=== PATIENT | male | born 1935 ===

== ENCOUNTER 2017-04-29 19:19 | Inpatient (IN) | payer OTHER ==
[2017-04-29 19:19] VITALS: BMI 27.3
--- NOTE | 2017-04-29 20:40 | ED PDOC ---
Lower Extremity Pain/Injury Time Seen by Provider: 04/29/17 20:38 Chief Complaint (Nursing): Lower Extremity Problem/Injury Chief Complaint (Provider): left leg swelling History Per: Patient (82 y/o male h/o DM/HTN here left leg swelling noted today. Notes pain gradually worsening today. Has no prior h/o pain or injury to leg.) Past Medical History Reviewed: Historical Data, Nursing Documentation, Vital Signs Vital Signs: Last Vital Signs Temp 97.4 F L 04/29/17 19:26 Pulse 103 H 04/29/17 19:26 Resp 18 04/29/17 19:26 BP 195/83 H 04/29/17 19:26 Pulse Ox 97 04/29/17 19:26 - Medical History PMH: HTN, Hypercholesterolemia Denies: Chronic Kidney Disease - Family History Family History: States: No Known Family Hx - Home Medications Home Medications: Ambulatory Orders Medication Instructions Recorded Aspirin [Aspirin Chewable] 81 mg PO DAILY 01/25/17 Diclofenac Sodium [Voltaren] 75 mg PO BID PRN 01/25/17 Empagliflozin [Jardiance] 10 mg PO DAILY 01/25/17 Ergocalciferol (Vitamin D2) 1 tab PO QWK 01/25/17 [Vitamin D2] Glimepiride [amaRYL] 2 mg PO DAILY 01/25/17 Lidocaine 5% [Lidoderm] 5 % TP DAILY 01/25/17 Losartan/Hydrochlorothiazide 1 tab PO DAILY 01/25/17 [Losartan-Hctz 100-25 mg Tab] Pravastatin Sodium [Pravachol] 40 mg PO DAILY 01/25/17 Tamsulosin HCl [Flomax] 0.4 mg PO DAILY 01/25/17 metFORMIN [glucOPHAGE] 500 mg PO BID 01/25/17 - Allergies Allergies/Adverse Reactions: Allergies Allergy/AdvReac Type Severity Reaction Status Date / Time No Known Allergies Allergy Verified 01/25/17 10:40 Review of Systems ROS Statement: Except As Marked, All Systems Reviewed And Found Negative Physical Exam - Reviewed Nursing Documentation Reviewed: Yes Vital Signs Reviewed: Yes - Physical Exam Appears: Positive for: Well, Non-toxic, No Acute Distress Head Exam: Positive for: ATRAUMATIC, NORMAL INSPECTION, NORMOCEPHALIC Skin: Positive for: Normal Color, Warm, DRY Eye Exam: Positive for: EOMI, Normal appearance, PERRL ENT: Positive for: Normal ENT Inspection Neck: Positive for: Normal, Painless ROM Cardiovascular/Chest: Positive for: Regular Rate, Rhythm Respiratory: Positive for: CNT, Normal Breath Sounds Gastrointestinal/Abdominal: Positive for: Normal Exam, Bowel Sounds, Soft Back: Positive for: Normal Inspection Extremity: Positive for: Normal ROM, Tenderness, Swelling (left thigh/leg), Other (pulse decreased dorsalis pedis left foot (+) dopplerable dorsum of foot) Neurologic/Psych: Positive for: Alert, Oriented - Laboratory Results Result Diagrams: 04/29/17 21:00 04/29/17 21:00 - ECG ECG Rhythm: Positive for: Sinus Rhythm (nsr 84bpm; no ectopy no acute changes) O2 Sat by Pulse Oximetry: 97 - Radiology X-Ray: Viewed By Me (cardiomegaly; no obvious infiltrate) - Progress ED Course And Treament: Lovenox 80 mg SC IM x 1 dose US: (+) dvt d/w Dr. Kauffman Disposition - Clinical Impression Clinical Impression: DVT (deep venous thrombosis) - Patient ED Disposition Is Patient to be Admitted: Yes - Disposition Disposition Time: 22:00 Condition: FAIR - Pt Status Changed To: Hospital Disposition Of: Inpatient - Admit Certification Admit to Inpatient:: After my assessment, the patient will require hospitalization for at least two midnights. This is because of the severity of symptoms shown, intensity of services needed, and/or the medical risk in this patient being treated as an outpatient.
[2017-04-29 21:13] LABS: BASO # 0.1 K/uL (0.0-0.2); BASO % 1.1 % (0.0-2.0); EOS # 0.1 K/uL (0.0-0.7); EOS % 1.6 % (0.0-4.0); HEMOGLOBIN 14.9 g/dL (12.0-18.0); LYMPH # 1.6 K/uL (1.0-4.3); LYMPH % 23.4 % (20.0-40.0); MEAN CELL VOLUME 80.5 fl (80.0-94.0); MEAN CORPUSCULAR HEMOGLOBIN 26.5 pg (27.0-31.0); MEAN CORPUSCULAR HGB CONC 32.9 g/dL (33.0-37.0); MEAN PLATELET VOLUME 7.3 fl (7.2-11.7); MONO # 0.6 K/uL (0.0-0.8); MONO % 9.3 % (0.0-10.0); NEUT # 4.4 K/uL (1.8-7.0); NEUT % 64.6 % (50.0-75.0); NRBC % 0.1 % (0.0-0.0); RBC 5.63 Mil/uL (4.40-5.90); RED CELL DISTRIBUTION WIDTH 13.6 % (11.5-14.5); WHITE BLOOD COUNT 6.8 K/uL (4.8-10.8)
[2017-04-29 21:23] LABS: ALB/GLOB RATIO 1.2 (1.0-2.1); ALBUMIN 4.2 g/dL (3.5-5.0); ALT/SGPT 30 U/L (21-72); AST/SGOT 23 U/L (17-59); BLOOD UREA NITROGEN 27 mg/dl (9-20); GFR AFRICAN-AMERICAN > 60; GFR NON-AFRICAN AMERICAN > 60
[2017-04-29 21:28] LABS: INR 1.2 (0.9-1.2); PARTIAL THROMBOPLASTIN TIME 30.1 Seconds (25.6-37.1); PROTHROMBIN TIME 13.1 Seconds (9.8-13.1)
[2017-04-29 21:47] LABS: B-TYPE NATRIURETIC PEPTIDE 37.2 pg/ml (0-900)
[2017-04-29] MEDS ORDERED: DICLOFENAC SODIUM 75 MG PO PRN (22:38)
[2017-04-29] MEDS: Enoxaparin 80 mg Syringe SC SCH (22:45)
[2017-04-29] MEDS ORDERED: ERGOCALCIFEROL PO SCH (22:45)
--- NOTE | 2017-04-29 22:50 | US ---
EXAM: US Duplex Left Lower Extremity Veins EXAM DATE/TIME: 04/29/2017 8:29 PM CLINICAL HISTORY: 82 years old, male; Pain; Leg, upper and leg, lower and foot and toes; Left; Patient HX: Left leg, foot pain & swelling; Additional info: R/O dvt TECHNIQUE: Real-time ultrasound scan of the veins of the left lower extremity with color Doppler flow, spectral waveform analysis and compression. COMPARISON: No relevant prior studies available. FINDINGS: Absence of normal compressibility of the left common femoral, superficial femoral, popliteal, and posterior tibial veins, associated with intraluminal echoes and absent flow on color imaging, compatible with extensive deep venous thrombosis of the left leg. Thrombus is also visualized in the proximal and mid left greater saphenous vein, compatible with superficial venous thrombosis. IMPRESSION: Extensive deep venous thrombosis of the left leg, from the groin to the calf, involving the left common femoral, femoral, popliteal and posterior tibial veins. See above for remaining findings.
--- NOTE | 2017-04-29 23:07 | CP.PCM.HP ---
History of Present Illness - History of Present Illness History of Present Illness: CC: Left leg pain This is an 82 yo male with a past medical history of Type 2 DM, essential hypertension, hypercholesterolemia, who presented to the ED after noticing left lower extremity swelling and calf pain gradually worsening over the course of the day. He denies any trauma or recent injury to the leg. Denies any recent travel. Denies any history of blood clots in the past. In the ED, the patient was found to have a significant left lower extremity deep venous thrombosis extending up to the femoral vein. The patient does have good pedal pulses, normal capillary refill. Patient saturating well, denies chest pain, and is not tachycardic, suggesting no existing pulmonary embolism. The patient was given therapeutic Lovenox. He is being admitted to med/surg for further workup. The patient denies shortness of breath, n/v/d, fever, chills, weakness. Present on Admission - Present on Admission Any Indicators Present on Admission: Yes History of DVT/PE: No History of Uncontrolled Diabetes: Yes Review of Systems - Review of Systems Review of Systems: A 12 point ROS was conducted and found to be negative other than in HPI. Past Patient History - Infectious Disease Hx of Infectious Diseases: None - Past Medical History & Family History Past Medical History?: Yes Past Family History: Reviewed and not pertinent - Past Social History Smoking Status: Never Smoked Alcohol: None Drugs: Denies - CARDIAC Hx Hypercholesterolemia: Yes Hx Hypertension: Yes - PULMONARY Hx Respiratory Disorders: No - NEUROLOGICAL Hx Neurological Disorder: No - HEENT Hx HEENT Problems: Yes Hx Cataracts: Yes - RENAL Hx Chronic Kidney Disease: No - ENDOCRINE/METABOLIC Hx Endocrine Disorders: Yes Hx Diabetes Mellitus Type 2: Yes - HEMATOLOGICAL/ONCOLOGICAL Hx Blood Disorders: No - INTEGUMENTARY Hx Dermatological Problems: No - MUSCULOSKELETAL/RHEUMATOLOGICAL Hx Musculoskeletal Disorders: No - GASTROINTESTINAL Hx Gastrointestinal Disorders: No - GENITOURINARY/GYNECOLOGICAL Hx Genitourinary Disorders: Yes Other/Comment: BPH - PSYCHIATRIC Hx Psychophysiologic Disorder: No Hx Substance Use: No - SURGICAL HISTORY Hx Surgeries: Yes Hx Cataract Extraction: Yes - ANESTHESIA Hx Anesthesia: Yes Hx Anesthesia Reactions: No Meds Allergies/Adverse Reactions: Allergies Allergy/AdvReac Type Severity Reaction Status Date / Time No Known Allergies Allergy Verified 01/25/17 10:40 Physical Exam - Additional Findings Additional findings: Physical exam: Constitutional- cooperative, awake, alert Head- NCAT, PERRL Eye- PERRL, EOMI. + Cataracts ENT- normal exam, MMM. Neck- normal inspection, supple, no JVD Respiratory- CTAB, no wheezes rales rhonchi Cardiovascular- RRR, +S1, +S2 no MRG GI/Abdominal- normal bowel sounds, soft, no mass, no hsm Skin- warm, dry Extremities Exam- + Tenderness, erythema, and edema to the left extremity extending up into the thigh. + Pedal pulses bilaterally Neurological Exam- alert, awake, oriented Psych- normal mood, normal affect Results - Vital Signs Recent Vital Signs: Last Vital Signs Temp 98 F 04/29/17 22:50 Pulse 85 04/29/17 22:50 Resp 18 04/29/17 22:50 BP 158/90 H 04/29/17 22:50 Pulse Ox 100 04/29/17 22:50 - Labs Result Diagrams: 04/29/17 21:00 04/29/17 21:00 Labs: Laboratory Results - last 24 hr 04/29/17 04/29/17 04/29/17 21:00 21:00 21:00 WBC 6.8 RBC 5.63 Hgb 14.9 Hct 45.3 MCV 80.5 MCH 26.5 L MCHC 32.9 L RDW 13.6 Plt Count 256 MPV 7.3 Neut % (Auto) 64.6 Lymph % (Auto) 23.4 [place] % (Auto) 9.3 Eos % (Auto) 1.6 Baso % (Auto) 1.1 Neut # (Auto) 4.4 Lymph # (Auto) 1.6 [place] # (Auto) 0.6 Eos # (Auto) 0.1 Baso # (Auto) 0.1 PT 13.1 INR 1.2 APTT 30.1 Sodium 139 Potassium 4.6 Chloride 101 Carbon Dioxide 23 Anion Gap 20 BUN 27 H Creatinine 1.1 Est GFR ( Amer) > 60 Est GFR (Non-Af Amer) > 60 Random Glucose 322 H Calcium 10.0 Total Bilirubin 0.5 AST 23 ALT 30 Alkaline Phosphatase 77 Troponin I < 0.0120 NT-Pro-B Natriuret Pep 37.2 Total Protein 7.9 Albumin 4.2 Globulin 3.7 Albumin/Globulin Ratio 1.2 Assessment & Plan - Assessment and Plan (Free Text) Plan: ASSESSMENT/PLAN 1) Left lower extremity deep venous thrombosis, presumed to be unprovoked - Admit to med/surg - consultation to heme/onc in AM for further workup - therapeutic Lovenox, 80 mg SC q 12 hours - Patient may be good candidate for Coumadin vs novel anticoagulant - For further workup in AM 2) Uncontrolled Type 2 Diabetes mellitus - Moderate carbohydrate consistent diet - Regular insulin sliding scale, accuecheks AC+HS - Restart Amaryl 2 mg po daily 3) Essential hypertension - Losartan 100 mg po daily - HCTZ 25 mg po daily 4) Hypercholesterolemia, chronic - Continue home statin 5) BPH - Continue Flomax
[2017-04-29] MEDS: Insulin Regular 100 units/ml SC SCH (23:25)
[2017-04-30 05:35] LABS: HEMOGLOBIN 14.1 g/dL (12.0-18.0); MEAN CELL VOLUME 80.6 fl (80.0-94.0); MEAN CORPUSCULAR HEMOGLOBIN 26.9 pg (27.0-31.0); MEAN CORPUSCULAR HGB CONC 33.4 g/dL (33.0-37.0); RBC 5.25 Mil/uL (4.40-5.90); RED CELL DISTRIBUTION WIDTH 13.7 % (11.5-14.5); WHITE BLOOD COUNT 6.1 K/uL (4.8-10.8)
[2017-04-30 05:53] LABS: BLOOD UREA NITROGEN 26 mg/dl (9-20); CALCIUM 10.1 mg/dL (8.4-10.2); GFR AFRICAN-AMERICAN > 60; GFR NON-AFRICAN AMERICAN > 60
[2017-04-30] MEDS ORDERED: Pneumococcal 23-Valent Vaccine IM ONE (06:00)
[2017-04-30] MEDS: Insulin Regular 100 units/ml SC SCH ×4 (06:28→23:00)
[2017-04-30] MEDS ORDERED: GlipiZIDE 5 mg SR Tab PO SCH (07:30)
--- NOTE | 2017-04-30 08:12 | CARD ---
APPROVED REPORT EKG Measurement Heart [id number] <Conclusion> Normal sinus rhythm with sinus arrhythmia Nonspecific T wave abnormality Abnormal ECG
--- NOTE | 2017-04-30 08:17 | RAD ---
PROCEDURE: CHEST RADIOGRAPH, 1 VIEW HISTORY: routine COMPARISON: Chest radiographs 08/19/2010. FINDINGS: Base again seen to be slightly rotated towards the right. LUNGS: No acute infiltrate identified bilaterally. PLEURA: No pneumothorax or pleural fluid seen. CARDIOVASCULAR: Normal. OSSEOUS STRUCTURES: No significant abnormalities. VISUALIZED UPPER ABDOMEN: Normal. OTHER FINDINGS: None. IMPRESSION: No interval acute cardiopulmonary disease appreciated.
[2017-04-30] MEDS: Ergocalciferol 50,000 Intl Units Cap PO SCH (08:23)
[2017-04-30] MEDS: Pravastatin Sodium 40 MG TAB PO SCH (08:24)
[2017-04-30] MEDS: Enoxaparin 80 mg Syringe SC SCH (08:45)
[2017-04-30] MEDS: Lidocaine 5% Patch TD SCH (08:46)
[2017-04-30] MEDS ORDERED: Enoxaparin 40 mg Syringe SC SCH (09:00)
[2017-04-30] MEDS ORDERED: GLIMEPIRIDE 2 MG PO SCH (09:00)
[2017-04-30] MEDS ORDERED: Patient's Own Med (Losartan/Hydrochlorothiazide [Losartan-Hctz 100-25 Mg Tab] 1 TAB) PO SCH (09:00)
--- NOTE | 2017-04-30 09:30 | US ---
PROCEDURE: Duplex ultrasound of the left lower extremity arteries. HISTORY: pain/swelling COMPARISON: None available. TECHNIQUE: Grayscale and duplex Doppler evaluation of the left common femoral, superficial femoral, popliteal, posterior tibial and dorsalis pedis arteries was performed.. FINDINGS: COMMON FEMORAL ARTERY: Patent. Maximal flow velocity of 112.9 cm/s. High resistance waveforms, no significant stenosis. SUPERFICIAL FEMORAL ARTERY:Patent. Maximal flow velocity of 93.5 cm/s. High resistance waveforms, no significant stenosis. POPLITEAL ARTERY:Patent. Maximal flow velocity of 91.9 cm/s. High resistance waveforms, no significant stenosis. POSTERIOR TIBIAL ARTERY: Patent. Maximal flow velocity of 66.4 cm/s. Monophasic waveform, high-grade stenosis or occlusion with collateralized blood flow. DORSALIS PEDIS ARTERY: Patent. Maximal flow velocity of 16.8 cm/s. Monophasic waveform, high-grade stenosis or occlusion with collateralized blood flow. ANTERIOR TIBIAL ARTERY: Pain with maximum flow velocity of 66.4 centimeters/second. Monophasic waveform, high-grade stenosis or occlusion with collateralized blood flow. OTHER FINDINGS: None. IMPRESSION: No significant stenosis left groin to knee with severe arterial disease in the runoff distribution diffusely. Further characterization can provided by conventional digital subtraction, CT or MR angiography.
--- NOTE | 2017-04-30 09:55 | CP.PCM.CON ---
History of Present Illness - History of Present Illness History of Present Illness: Patient is a 82 years old presented to the emergency room complaining of increasing left leg swollen was tenderness throughout the left leg. For which I was called to see him for renal evaluation because of the swollen. Patient has history of diabetes mellitus hypertension hyperlipidemia among other things as noted in the history and physical examination Past medical history as noted above Review of system unremarkable foe 14 system except for what mentioned in the above presenting with a left leg swollen Social history as noted in the history and physical examination Review of Systems - Constitutional Constitutional: Anorexia, Weakness. absent: Chills - EENT Nose/Mouth/Throat: absent: Epistaxis - Cardiovascular Cardiovascular: Edema. absent: Chest Pain, Dyspnea, Palpitations - Respiratory Respiratory: absent: Cough, Hemoptysis - Gastrointestinal Gastrointestinal: Abdominal Pain - Genitourinary Genitourinary: Nocturia - Musculoskeletal Musculoskeletal: As Per HPI - Neurological Neurological: absent: Syncope, Tremor - Psychiatric Psychiatric: As Per HPI - Hematologic/Lymphatic Hematologic: absent: Easy Bleeding Past Patient History - Infectious Disease Hx of Infectious Diseases: None - Past Medical History & Family History Past Medical History?: Yes - Past Social History Smoking Status: Former Smoker - CARDIAC Hx Cardiac Disorders: Yes - PULMONARY Hx Respiratory Disorders: No - NEUROLOGICAL Hx Neurological Disorder: No - HEENT Hx HEENT Problems: Yes Hx Cataracts: Yes - RENAL Hx Chronic Kidney Disease: No - ENDOCRINE/METABOLIC Hx Endocrine Disorders: Yes Hx Diabetes Mellitus Type 2: Yes - HEMATOLOGICAL/ONCOLOGICAL Hx Blood Disorders: No - INTEGUMENTARY Hx Dermatological Problems: No - MUSCULOSKELETAL/RHEUMATOLOGICAL Hx Musculoskeletal Disorders: No Hx Falls: No - GASTROINTESTINAL Hx Gastrointestinal Disorders: No - GENITOURINARY/GYNECOLOGICAL Hx Genitourinary Disorders: Yes Hx Prostate Problems: Yes Other/Comment: BPH - PSYCHIATRIC Hx Psychophysiologic Disorder: No Hx Substance Use: No - SURGICAL HISTORY Hx Surgeries: Yes Hx Cataract Extraction: Yes - ANESTHESIA Hx Anesthesia: Yes Hx Anesthesia Reactions: No Hx Malignant Hyperthermia: No Has any member of the family had a problem w/ anesthesia?: No Meds Allergies/Adverse Reactions: Allergies Allergy/AdvReac Type Severity Reaction Status Date / Time No Known Allergies Allergy Verified 01/25/17 10:40 - Medications Medications: Current Medications Acetaminophen (Tylenol 325mg Tab) 650 mg PO Q6 PRN PRN Reason: Pain, Mild (1-3) Aspirin (Aspirin Chewable) 81 mg PO DAILY [facility] Last Admin: 04/30/17 08:23 Dose: Not Given Enoxaparin Sodium (Lovenox) 80 mg SC Q12 [facility] PRN Reason: Protocol Last Admin: 04/30/17 08:45 Dose: 80 mg Ergocalciferol (Drisdol 50,000 Intl Units Cap) 1 cap PO Q7D [facility] Last Admin: 04/30/17 08:23 Dose: Not Given Glipizide (Glucotrol Xl) 5 mg PO ACB [facility] Last Admin: 04/30/17 06:30 Dose: 5 mg Home Med (Diclofenac Sodium [Voltaren]) 75 mg PO BID PRN PRN Reason: Pain, Mild (1-3) Home Med (Empagliflozin [Jardiance]) 10 mg PO DAILY [facility] Hydrochlorothiazide (Hydrodiuril) 25 mg PO DAILY [facility] Last Admin: 04/30/17 08:24 Dose: Not Given Insulin Human Regular (Humulin R) 0 units SC ACCU-CHECK [facility] PRN Reason: Protocol Last Admin: 04/30/17 06:28 Dose: 3 units Lidocaine (Lidoderm) 1 ea TD DAILY [facility] Last Admin: 04/30/17 08:46 Dose: Not Given Losartan Potassium (Cozaar) 100 mg PO DAILY [facility] Last Admin: 04/30/17 08:23 Dose: Not Given Pravastatin Sodium (Pravachol) 40 mg PO DAILY [facility] Last Admin: 04/30/17 08:24 Dose: Not Given Tamsulosin HCl (Flomax) 0.4 mg PO DAILY [facility] Last Admin: 04/30/17 08:23 Dose: Not Given Physical Exam - Constitutional Appears: No Acute Distress - ENT Exam ENT Exam: Mucous Membranes Moist - Neck Exam Neck exam: Negative for: Lymphadenopathy - Respiratory Exam Respiratory Exam: NORMAL BREATHING PATTERN. absent: Chest Wall Tenderness, Rhonchi - Cardiovascular Exam Cardiovascular Exam: absent: Gallop, JVD, Rubs - GI/Abdominal Exam GI & Abdominal Exam: Normal Bowel Sounds. absent: Guarding - Extremities Exam Extremities exam: Positive for: calf tenderness Additional comments: Left leg diffuse swollen the entire left leg was tenderness throughout the entire left leg - Back Exam Back exam: absent: CVA tenderness (L) - Neurological Exam Neurological exam: Alert - Psychiatric Exam Psychiatric exam: Normal Affect Results - Vital Signs Recent Vital Signs: Last Vital Signs Temp 98.6 F 03/05/18 08:21 Pulse 99 H 04/30/17 08:21 Resp 10 L 04/30/17 08:21 BP 120/74 04/30/17 08:21 Pulse Ox 98 04/30/17 08:21 - Labs Result Diagrams: 04/30/17 04:30 04/30/17 04:30 Labs: Laboratory Results - last 24 hr 04/29/17 04/29/17 04/29/17 21:00 21:00 21:00 WBC 6.8 RBC 5.63 Hgb 14.9 Hct 45.3 MCV 80.5 MCH 26.5 L MCHC 32.9 L RDW 13.6 Plt Count 256 MPV 7.3 Neut % (Auto) 64.6 Lymph % (Auto) 23.4 [place] % (Auto) 9.3 Eos % (Auto) 1.6 Baso % (Auto) 1.1 Neut # (Auto) 4.4 Lymph # (Auto) 1.6 [place] # (Auto) 0.6 Eos # (Auto) 0.1 Baso # (Auto) 0.1 PT 13.1 INR 1.2 APTT 30.1 Sodium 139 Potassium 4.6 Chloride 101 Carbon Dioxide 23 Anion Gap 20 BUN 27 H Creatinine 1.1 Est GFR ( Amer) > 60 Est GFR (Non-Af Amer) > 60 POC Glucose (mg/dL) Random Glucose 322 H Calcium 10.0 Total Bilirubin 0.5 AST 23 ALT 30 Alkaline Phosphatase 77 Troponin I < 0.0120 NT-Pro-B Natriuret Pep 37.2 Total Protein 7.9 Albumin 4.2 Globulin 3.7 Albumin/Globulin Ratio 1.2 04/29/17 04/30/17 04/30/17 23:17 01:32 04:30 WBC 6.1 RBC 5.25 Hgb 14.1 Hct 42.3 MCV 80.6 MCH 26.9 L MCHC 33.4 RDW 13.7 Plt Count 259 MPV Neut % (Auto) Lymph % (Auto) [place] % (Auto) Eos % (Auto) Baso % (Auto) Neut # (Auto) Lymph # (Auto) [place] # (Auto) Eos # (Auto) Baso # (Auto) PT INR APTT Sodium Potassium Chloride Carbon Dioxide Anion Gap BUN Creatinine Est GFR ( Amer) Est GFR (Non-Af Amer) POC Glucose (mg/dL) 262 H 261 H Random Glucose Calcium Total Bilirubin AST ALT Alkaline Phosphatase Troponin I NT-Pro-B Natriuret Pep Total Protein Albumin Globulin Albumin/Globulin Ratio 04/30/17 04/30/17 04:30 06:26 WBC RBC Hgb Hct MCV MCH MCHC RDW Plt Count MPV Neut % (Auto) Lymph % (Auto) [place] % (Auto) Eos % (Auto) Baso % (Auto) Neut # (Auto) Lymph # (Auto) [place] # (Auto) Eos # (Auto) Baso # (Auto) PT INR APTT Sodium 141 Potassium 4.6 Chloride 102 Carbon Dioxide 27 Anion Gap 17 BUN 26 H Creatinine 1.0 Est GFR ( Amer) > 60 Est GFR (Non-Af Amer) > 60 POC Glucose (mg/dL) 216 H Random Glucose 257 H Calcium 10.1 Total Bilirubin AST ALT Alkaline Phosphatase Troponin I NT-Pro-B Natriuret Pep Total Protein Albumin Globulin Albumin/Globulin Ratio Assessment & Plan (1) DVT (deep venous thrombosis) Assessment and Plan: Deep vein thrombosis of the entire left leg Patient is being transferred to another hospital for thrombolusis. Prerenal azotemia perhaps related to an element of dehydration. Status: Acute
--- NOTE | 2017-04-30 16:03 | CP.PCM.PN ---
Subjective - Date & Time of Evaluation Date of Evaluation: 04/30/17 Time of Evaluation: 08:00 - Subjective Subjective: Patient seen and examined bedside. Feeling well. Hemodynamically stable, afebrile.Complains of some pain to LLE . Waiting for transfer to [facility] for direct catheter thrombolysis Objective - Vital Signs/Intake and Output Vital Signs (last 24 hours): Temp Pulse Resp BP Pulse Ox 98.2 F 95 H 10 L 114/59 L 98 04/30/17 12:10 04/30/17 12:10 04/30/17 12:10 04/30/17 12:10 04/30/17 12:10 - Medications Medications: Current Medications Acetaminophen (Tylenol 325mg Tab) 650 mg PO Q6 PRN PRN Reason: Pain, Mild (1-3) Aspirin (Aspirin Chewable) 81 mg PO DAILY [facility] Last Admin: 04/30/17 08:23 Dose: Not Given Enoxaparin Sodium (Lovenox) 80 mg SC Q12 [facility] PRN Reason: Protocol Last Admin: 04/30/17 08:45 Dose: 80 mg Ergocalciferol (Drisdol 50,000 Intl Units Cap) 1 cap PO Q7D [facility] Last Admin: 04/30/17 08:23 Dose: Not Given Glipizide (Glucotrol Xl) 5 mg PO ACB [facility] Last Admin: 04/30/17 06:30 Dose: 5 mg Home Med (Diclofenac Sodium [Voltaren]) 75 mg PO BID PRN PRN Reason: Pain, Mild (1-3) Home Med (Empagliflozin [Jardiance]) 10 mg PO DAILY [facility] Hydrochlorothiazide (Hydrodiuril) 25 mg PO DAILY [facility] Last Admin: 04/30/17 08:24 Dose: Not Given Insulin Human Regular (Humulin R) 0 units SC ACCU-CHECK [facility] PRN Reason: Protocol Last Admin: 04/30/17 12:12 Dose: 2 units Lidocaine (Lidoderm) 1 ea TD DAILY [facility] Last Admin: 04/30/17 08:46 Dose: Not Given Losartan Potassium (Cozaar) 100 mg PO DAILY [facility] Last Admin: 04/30/17 08:23 Dose: Not Given Pravastatin Sodium (Pravachol) 40 mg PO DAILY [facility] Last Admin: 04/30/17 08:24 Dose: Not Given Tamsulosin HCl (Flomax) 0.4 mg PO DAILY [facility] Last Admin: 04/30/17 08:23 Dose: Not Given - Labs Labs: 04/30/17 04:30 04/30/17 04:30 PT 13.1 Seconds (9.8-13.1) 04/29/17 21:00 INR 1.2 (0.9-1.2) 04/29/17 21:00 APTT 30.1 Seconds (25.6-37.1) 04/29/17 21:00 - Constitutional Appears: Non-toxic, No Acute Distress - Head Exam Head Exam: ATRAUMATIC, NORMAL INSPECTION, NORMOCEPHALIC - Eye Exam Eye Exam: EOMI, Normal appearance, PERRL Pupil Exam: NORMAL ACCOMODATION - ENT Exam ENT Exam: Mucous Membranes Moist, Normal Exam - Neck Exam Neck Exam: Full ROM, Normal Inspection - Respiratory Exam Respiratory Exam: Clear to Ausculation Bilateral. absent: Rales, Rhonchi, Wheezes - Cardiovascular Exam Cardiovascular Exam: REGULAR RHYTHM, RRR, +S1, +S2. absent: JVD - GI/Abdominal Exam GI & Abdominal Exam: Soft, Normal Bowel Sounds. absent: Distended, Guarding, Rebound - Rectal Exam Rectal Exam: Deferred - Extremities Exam Extremities Exam: Full ROM, Normal Capillary Refill, Normal Inspection Additional comments: LLE swollen fott cooler to touch but pulses present - Back Exam Back Exam: NORMAL INSPECTION - Neurological Exam Neurological Exam: Alert, Awake, CN II-XII Intact, Oriented x3 - Psychiatric Exam Psychiatric exam: Normal Affect, Normal Mood - Skin Skin Exam: Dry, Intact, Normal Color, Warm Assessment and Plan - Assessment and Plan (Free Text) Assessment: 82 yo male with a past medical history of Type 2 DM, essential hypertension, hypercholesterolemia, presented to ED with left lower extremity swelling and calf pain gradually worsening over the course of the day. He denies any trauma or recent injury to the leg. Denies any recent travel. Denies any history of blood clots in the past. In the ED, the patient was found to have a significant left lower extremity deep venous thrombosis extending up to the femoral vein. The patient does have good pedal pulses, normal capillary refill. Patient saturating well, denies chest pain, and is not tachycardic, suggesting no existing pulmonary embolism. The patient was given therapeutic Lovenox. He is being admitted to telemetry . IR consulted and patient will be transferred for LLE thrombolysis 1. Left lower extremity deep venous thrombosis, presumed to be unprovoked Doppler US showed extensive DVt to LLE extending up to femoral vein Continue Lovenox therapeutic IR consulted and case discussed with Dr. Tony . Patient will benefit from direct catheter thrombolysis. Arrangements made for transfer to [facility] in AM for the procedure keep NPO past midnight Hem/onc consulted 2. Uncontrolled Type 2 Diabetes mellitus Moderate carbohydrate consistent diet Regular insulin sliding scale, accuecheks AC+HS on Amaryl 2 mg po daily 3. Essential hypertension controlled Losartan 100 mg po daily HCTZ 25 mg po daily 4. Hypercholesterolemia chronic Continue home statin 5. BPH on Flomax 6. DVT prophylaxis on Lovenocx therapeutic
[2017-04-30] MEDS: Sodium Chloride 0.9% 1,000 ML IV SCH (16:49)
[2017-05-01] MEDS: Sodium Chloride 0.9% 1,000 ML IV SCH ×2 (03:30→20:47)
[2017-05-01 05:14] LABS: HEMOGLOBIN 13.4 g/dL (12.0-18.0); MEAN CELL VOLUME 79.9 fl (80.0-94.0); MEAN CORPUSCULAR HEMOGLOBIN 26.6 pg (27.0-31.0); MEAN CORPUSCULAR HGB CONC 33.3 g/dL (33.0-37.0); RBC 5.03 Mil/uL (4.40-5.90); RED CELL DISTRIBUTION WIDTH 13.7 % (11.5-14.5); WHITE BLOOD COUNT 5.7 K/uL (4.8-10.8)
[2017-05-01 05:16] LABS: BLOOD UREA NITROGEN 21 mg/dl (9-20); CALCIUM 9.2 mg/dL (8.4-10.2); GFR AFRICAN-AMERICAN > 60; GFR NON-AFRICAN AMERICAN > 60
[2017-05-01 05:22] LABS: INR 1.3 (0.9-1.2)
[2017-05-01] MEDS: Insulin Regular 100 units/ml SC SCH ×2 (06:09→23:00)
--- NOTE | 2017-05-01 11:36 | PCM.SURG1 ---
Surgeon's Initial Post Op Note - Surgeon's Notes Surgeon: Sam Jeong MD Nurse Tech: NONE Type of Anesthesia: IV Sedation Pre-Operative Diagnosis: Left iliofemoral DVT Operative Findings: Venogram showed severe DVT left femoral vein, iliac veins. Moderate stenosis of left common iliac, external iliac vein. Post-Operative Diagnosis: Left iliofemoral DVT Operation Performed: Thrombectomy of left femoral DVT, BRIDGE INSTRUCTOR of iliac vein stenosis. Specimen/Specimens Removed: none Estimated Blood Loss: EBL {In ML}: 20 Blood Products Given: N/A Drains Used: No Drains Post-Op Condition: Fair Date of Surgery/Procedure: 05/01/17 Time of Surgery/Procedure: 11:30
[2017-05-01] MEDS: Pravastatin Sodium 40 MG TAB PO SCH (20:49)
[2017-05-01] MEDS: Lidocaine 5% Patch TD SCH (20:52)
[2017-05-01] MEDS ORDERED: Enoxaparin 80 mg Syringe SC SCH (21:00)
--- NOTE | 2017-05-01 23:46 | CP.PCM.PN ---
Subjective - Date & Time of Evaluation Date of Evaluation: 05/01/17 Time of Evaluation: 23:46 - Subjective Subjective: Patient has returned from left Thrombectomy at the [facility]. He refers edema with mild pain at the left lower extremity. No SOB nor Chest pa9in. no back pain. Objective - Vital Signs/Intake and Output Vital Signs (last 24 hours): Temp Pulse Resp BP Pulse Ox 98.6 F 102 H 24 137/69 95 05/01/17 20:00 05/01/17 23:00 05/01/17 23:00 05/01/17 23:00 05/01/17 23:00 Intake and Output: 05/01/17 05/02/17 18:59 06:59 Intake Total 230 Output Total 200 Balance 30 - Medications Medications: Current Medications Acetaminophen (Tylenol 325mg Tab) 650 mg PO Q6 PRN PRN Reason: Pain, Mild (1-3) Enoxaparin Sodium (Lovenox) 80 mg SC Q12 [facility] PRN Reason: Protocol Last Admin: 05/01/17 21:15 Dose: Not Given Ergocalciferol (Drisdol 50,000 Intl Units Cap) 1 cap PO Q7D [facility] Last Admin: 04/30/17 08:23 Dose: Not Given Glipizide (Glucotrol Xl) 5 mg PO ACB [facility] Last Admin: 04/30/17 06:30 Dose: 5 mg Home Med (Empagliflozin [Jardiance]) 10 mg PO DAILY [facility] Hydrochlorothiazide (Hydrodiuril) 25 mg PO DAILY [facility] Last Admin: 05/01/17 20:50 Dose: 25 mg Insulin Human Regular (Humulin R) 0 units SC ACCU-CHECK [facility] PRN Reason: Protocol Last Admin: 05/01/17 23:00 Dose: Not Given Lidocaine (Lidoderm) 1 ea TD DAILY [facility] Last Admin: 05/01/17 20:52 Dose: Not Given Losartan Potassium (Cozaar) 100 mg PO DAILY [facility] Last Admin: 05/01/17 20:35 Dose: Not Given Pravastatin Sodium (Pravachol) 40 mg PO DAILY [facility] Last Admin: 05/01/17 20:49 Dose: 40 mg Tamsulosin HCl (Flomax) 0.4 mg PO DAILY [facility] Last Admin: 05/01/17 20:49 Dose: 0.4 mg - Labs Labs: 05/01/17 04:30 03/06/18 04:30 PT 14.0 Seconds (9.8-13.1) H 05/01/17 04:30 INR 1.3 (0.9-1.2) H 05/01/17 04:30 APTT 30.1 Seconds (25.6-37.1) 04/29/17 21:00 - Constitutional Appears: Well, No Acute Distress - Head Exam Head Exam: ATRAUMATIC, NORMAL INSPECTION, NORMOCEPHALIC - Respiratory Exam Respiratory Exam: Clear to Ausculation Bilateral. absent: Rales, Rhonchi, Wheezes, Stridor - Cardiovascular Exam Cardiovascular Exam: REGULAR RHYTHM, RRR, +S1, +S2 - GI/Abdominal Exam GI & Abdominal Exam: Soft, Normal Bowel Sounds Additional comments: Mild tenderness at th4e left lower abdomen. No guarding nor rebound tenderness. - Extremities Exam Additional comments: Left lower extremity Swollen from the upper thigh to the toes. Wrapped in Michael bandage. Pedal dorsales and Tibia Posterior pulses present. - Back Exam Back Exam: NORMAL INSPECTION. absent: CVA tenderness (L), CVA tenderness (R) - Additional Findings Additional findings: CT Pelvis Without Intravenous Contrast IMPRESSION: Post surgical changes in the lft thigh, groin and lower retroperitoneum consistent with recent thrombectomy; radiopaque material in and around the femoral and external iliac veins, residual contrast versus clot, relative increased sixe of the left femoral and iliac veins compared to the right recent possibility of recent thrombus Assessment and Plan - Assessment and Plan (Free Text) Plan: Assessment: 82 yo male with a past medical history of Type 2 DM, essential hypertension, hypercholesterolemia, presented to ED with left lower extremity swelling and calf pain gradually worsening over the course of the day. He denies any trauma or recent injury to the leg. Denies any recent travel. Denies any history of blood clots in the past. In the ED, the patient was found to have a significant left lower extremity deep venous thrombosis extending up to the femoral vein. The patient does have good pedal pulses, normal capillary refill. Patient saturating well, denies chest pain, and is not tachycardic, suggesting no existing pulmonary embolism. The patient was given therapeutic Lovenox. He is being admitted to telemetry . IR consulted and patient was transferred for LLE thrombolysis Patient admitted to ICU on return from [facility] for Closer monitoring. 1. 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 Uncontrolled Type 2 Diabetes mellitus Moderate carbohydrate consistent diet Regular insulin sliding scale, accuecheks AC+HS on Amaryl 2 mg po daily 3. Essential hypertension controlled Losartan 100 mg po daily HCTZ 25 mg po daily 4. Hypercholesterolemia chronic Continue home statin 5. BPH on Flomax 6. DVT prophylaxis on Lovenocx therapeutic
[2017-05-02] MEDS: Sodium Chloride 0.9% 1,000 ML IV SCH ×2 (00:15→09:37)
[2017-05-02] MEDS ORDERED: Enoxaparin 80 mg Syringe SC STA (00:33)
[2017-05-02 05:09] LABS: HEMOGLOBIN 12.6 g/dL (12.0-18.0); MEAN CELL VOLUME 80.5 fl (80.0-94.0); MEAN CORPUSCULAR HEMOGLOBIN 26.7 pg (27.0-31.0); MEAN CORPUSCULAR HGB CONC 33.1 g/dL (33.0-37.0); RBC 4.75 Mil/uL (4.40-5.90); RED CELL DISTRIBUTION WIDTH 13.1 % (11.5-14.5); WHITE BLOOD COUNT 6.2 K/uL (4.8-10.8)
[2017-05-02 05:15] LABS: BLOOD UREA NITROGEN 23 mg/dl (9-20); CALCIUM 8.9 mg/dL (8.4-10.2); GFR AFRICAN-AMERICAN > 60; GFR NON-AFRICAN AMERICAN > 60
[2017-05-02] MEDS: Insulin Regular 100 units/ml SC SCH ×4 (06:01→23:55)
[2017-05-02] MEDS ORDERED: Pneumococcal 23-Valent Vaccine IM ONE (07:56)
[2017-05-02] MEDS: Lidocaine 5% Patch TD SCH (09:06)
[2017-05-02] MEDS: Pravastatin Sodium 40 MG TAB PO SCH (09:06)
--- NOTE | 2017-05-02 10:25 | CP.PCM.PN ---
Subjective - Date & Time of Evaluation Date of Evaluation: 05/02/17 Time of Evaluation: 09:00 - Subjective Subjective: ( I did not see pt yesterday - he was transferred to [facility] early am for Thrombectomy by IR and did not come back to [facility] till after 8 pm ) Pt states his leg pain is better and even swelling is slightly better denies CP] no SOB no abd pain no fever Denies any other sxs. Objective - Vital Signs/Intake and Output Vital Signs (last 24 hours): Temp Pulse Resp BP Pulse Ox 99.4 F 107 H 26 H 103/63 99 05/02/17 08:00 05/02/17 09:04 05/02/17 08:00 05/02/17 09:04 05/02/17 08:00 Intake and Output: 05/02/17 05/02/17 06:59 18:59 Intake Total 1060 300 Output Total 605 Balance 455 300 - Medications Medications: Current Medications Acetaminophen (Tylenol 325mg Tab) 650 mg PO Q6 PRN PRN Reason: Other Enoxaparin Sodium (Lovenox) 80 mg SC Q12@0100,1300 [facility] PRN Reason: Protocol Ergocalciferol (Drisdol 50,000 Intl Units Cap) 1 cap PO Q7D [facility] Last Admin: 04/30/17 08:23 Dose: Not Given Glipizide (Glucotrol Xl) 5 mg PO ACB [facility] Last Admin: 04/30/17 06:30 Dose: 5 mg Home Med (Empagliflozin [Jardiance]) 10 mg PO DAILY [facility] Hydrochlorothiazide (Hydrodiuril) 25 mg PO DAILY [facility] Last Admin: 05/02/17 09:05 Dose: 25 mg Sodium Chloride (Sodium Chloride 0.9%) 1,000 mls @ 75 mls/hr IV .[id number] [facility] Stop: 05/02/17 13:34 Last Admin: 05/02/17 00:15 Dose: 75 mls/hr Insulin Human Regular (Humulin R) 0 units SC ACCU-CHECK [facility] PRN Reason: Protocol Last Admin: 05/02/17 06:01 Dose: 3 units Lidocaine (Lidoderm) 1 ea TD DAILY [facility] Last Admin: 05/02/17 09:06 Dose: 1 ea Losartan Potassium (Cozaar) 100 mg PO DAILY [facility] Last Admin: 05/02/17 09:04 Dose: 100 mg Pravastatin Sodium (Pravachol) 40 mg PO DAILY [facility] Last Admin: 05/02/17 09:06 Dose: 40 mg Tamsulosin HCl (Flomax) 0.4 mg PO DAILY [facility] Last Admin: 05/02/17 09:05 Dose: 0.4 mg Tramadol HCl (Ultram) 50 mg PO Q4 PRN PRN Reason: Pain, moderate (4-7) Tramadol HCl (Ultram) 100 mg PO Q4 PRN PRN Reason: Pain, severe (8-10) Last Admin: 05/02/17 04:50 Dose: 100 mg - Labs Labs: 05/02/17 04:40 05/02/17 04:40 PT 14.0 Seconds (9.8-13.1) H 05/01/17 04:30 INR 1.3 (0.9-1.2) H 05/01/17 04:30 APTT 30.1 Seconds (25.6-37.1) 04/29/17 21:00 - Constitutional Appears: No Acute Distress - Head Exam Head Exam: NORMAL INSPECTION, NORMOCEPHALIC - Eye Exam Eye Exam: EOMI, Normal appearance Pupil Exam: NORMAL ACCOMODATION - ENT Exam ENT Exam: Mucous Membranes Moist, Normal External Ear Exam - Neck Exam Neck Exam: Full ROM. absent: Meningismus - Respiratory Exam Respiratory Exam: NORMAL BREATHING PATTERN. absent: Rales, Respiratory Distress - Cardiovascular Exam Cardiovascular Exam: REGULAR RHYTHM, +S1, +S2 - GI/Abdominal Exam GI & Abdominal Exam: Soft, Normal Bowel Sounds. absent: Tenderness - Extremities Exam Extremities Exam: Full ROM, Normal Capillary Refill Additional comments: left leg edema, Compression FANY bandage in place - Back Exam Back Exam: Full ROM. absent: CVA tenderness (L), CVA tenderness (R) - Neurological Exam Neurological Exam: Alert, Awake, CN II-XII Intact, Oriented x3 Neuro motor strength exam: Left Upper Extremity: 5, Right Upper Extremity: 5, Left Lower Extremity: 5, Right Lower Extremity: 5 - Psychiatric Exam Psychiatric exam: Normal Affect, Normal Mood - Skin Skin Exam: Dry, Normal Color, Warm Assessment and Plan - Assessment and Plan (Free Text) Assessment: 82 yo male with a past medical history of Type 2 DM, essential hypertension, hypercholesterolemia, presented to ED with left lower extremity swelling and calf pain. He denies any trauma or recent injury to the leg. Denies any recent travel. Denies any history of blood clots in the past. In the ED, the patient was found to have a significant left lower extremity deep venous thrombosis extending up to the femoral vein and iliac veins . The patient does have good pedal pulses, normal capillary refill. Patient is saturating well, denies chest pain. He was started on therapeutic Lovenox. IR consulted and pt underwent Left Iliofemoral Thrombectomy . 1. Extensive Left lower extremity deep venous thrombosis s/p Thrombectomy Doppler US showed extensive DVt to LLE extending up to femoral vein Continue Lovenox therapeutic Discussed case with Dr Jeong - darby oral anticoagulant x 6 months. Also rec to keep Compression bandage on for 1 wk to help with the swelling will start Eliquis in am 10 mg bid x 7 days then 5 mg bid Hem/onc consulted 2. Uncontrolled Type 2 Diabetes mellitus Moderate carbohydrate consistent diet Regular insulin sliding scale, accuecheks AC+HS Hold Metformin while in the hospital Increase Glucotrol to 10 mg XL daily 3. Essential hypertension controlled Losartan 100 mg po daily HCTZ 25 mg po daily 4. Hypercholesterolemia chronic Continue home statin 5. BPH on Flomax 6. DVT prophylaxis on Lovenox therapeutic
[2017-05-02] MEDS ORDERED: Enoxaparin 80 mg Syringe SC SCH (13:00)
--- NOTE | 2017-05-02 19:45 | US ---
EXAM: US Duplex Left Lower Extremity Veins EXAM DATE/TIME: 05/02/2017 5:30 PM CLINICAL HISTORY: 82 years old, male; Signs and symptoms; Swelling of limb; Lower extremity, left; Prior surgery; Surgery date: Post-operative (0-2 days); Surgery type: Lt leg postthrobactomy; Additional info: Post thrombectomy TECHNIQUE: Real-time ultrasound scan of the veins of the left lower extremity with color Doppler flow, spectral waveform analysis and compression. COMPARISON: US - DUPLEX LOWER EXTRM VEIN LEFT 2017-04-29 21:18 FINDINGS: Deep veins: Common femoral, superficial femoral, popliteal and posterior tibial veins were evaluated. There is left deep venous thrombosis. There is occlusive thrombus left common femoral, superficial femoral, popliteal and posterior tibial veins. There is noncompressibility. There is no flow on color or spectral imaging. IMPRESSION: Continued left lower extremity deep venous thrombosis with occlusive thrombus from the groin to the calf Similar findings were seen on the prior study
--- NOTE | 2017-05-02 20:43 | CP.CCUPN ---
CCU Subjective - Physician Review Subjective (Free Text): c/o left leg pain and increased swelling, FANY wrappings removed and leg assessed , no cyanosis noted, distal pulses remain present via Doppler only, Thigh circumference measured at its widest portion and is 25 cm. No palpable cords on exam. Pain has improved after a dose of Ultram approx. 1 hr ago prior to my exam. He is awake and alert, remains in pleasant mood and not in any obvious distress, nor c/o any other discomfort. PMD discussed with IR regarding orders for repeat US Venous ad Arterial Doppler studies of LLE again now. Other VS and I/Os reviewed. ROS: No other pertinent negs or positives on 10+ system review. PMSFH: All other Nursing and physician documentation reviewed to date; no new pertinent info noted relevant to current medical problems. EXAM- HEENT: no icterus, slight ptosis on R, irregular pupils bilaterally. No icterus , no gaze preference. NECK: no visible JVD, supple, carotids equal upstroke bilat/no bruits CHEST: decreased BS bases, no wheezes audible HEART: regular distant, S1S2, no murmur audible, no rubs. ABD: soft, no distention, no tympany, no palp tenderness, BS hypoactive EXT: +bilat edema. LLE: No peripheral/ digital cyanosis, no calf tenderness or palpable cords, distal pulses intact as above via Doppler signal. + warmth, no coolness or paleness. NEURO: no gross focal motor deficits. SKIN: no rashes LABS: WBC= 6.2 HGB= 12.6 PLTs= 195K Na= 139 K= 4.1 HCO3=24 CL= 102 BUN/Cr= 23/1.1 BS= 225 MAJOR PROBLEMS: 1. Large DVT involving CFV, SFV, Popliteal Venous system of LLE; with s/p Thrombectomy 2. Iliac Artery Steniso, s/p CROOK OPERATOR 3. Mild Azotemia, not worse post-contrast administration 4. DM II PLAN: 1. Consider AC with interim Heparin IV drip over Loveneox for now. 2. Re-eval by IR. 3. Hold on tight FANY wraps of LLE overnight, trial of 3 pillow leg elevation. 4. f/u repeat Arterial / Venous Doppler studies of LLE. 5. IVF hydration. CCU Objective - Vital Signs / Intake & Output Vital Signs (Last 4 hours): Vital Signs Pulse Resp BP Pulse Ox 05/02/17 18:00 97 H 22 111/62 95 Intake and Output (Last 8hrs): Intake & Output 05/02/17 05/02/17 05/02/17 06:59 14:59 22:59 Intake Total 830 300 Output Total 405 500 200 Balance 425 -200 -200 Weight 185 lb 185 lb Intake: IV 650 300 Oral 180 Output: Urine 405 500 200 Urine, Voided 405 500 200 - Medications Active Medications: Active Medications Generic Name Dose Route Start Last Admin Trade Name Freq PRN Reason Stop Dose Admin Acetaminophen 650 mg 05/02/17 00:08 Tylenol 325mg Tab PO Q6 PRN Other Enoxaparin Sodium 80 mg 05/02/17 13:00 05/02/17 12:26 Lovenox SC 05/03/17 02:00 80 mg Q12@0100,1300 [facility]ARYAM Administration Protocol Ergocalciferol 1 cap 04/30/17 09:00 04/30/17 08:23 Drisdol 50,000 Intl Units Cap PO Not Given Q7D [facility]AM Glipizide 10 mg 05/03/17 08:00 Glucotrol Xl PO BRK [facility] Hydrochlorothiazide 25 mg 04/30/17 09:00 05/02/17 09:05 Hydrodiuril PO 25 mg DAILY [facility] Administration Heparin Sodium/Dextrose 25,000 units in 250 mls @ 10 mls/hr 05/02/17 20:30 Heparin 25,000 Units/250ml In D5w IV .Q24H [facility]ARYAM Protocol Sodium Chloride 1,000 mls @ 125 mls/hr 05/02/17 20:45 Sodium Chloride 0.45% IV 05/03/17 20:42 .Q8H [facility]ARYAM Insulin Human Regular 0 units 04/29/17 23:00 05/02/17 17:19 Humulin R SC 3 units ACCU-CHECK [facility]AM Administration Protocol Lidocaine 1 ea 04/30/17 09:00 05/02/17 09:06 Lidoderm TD 1 ea DAILY [facility] Administration Losartan Potassium 100 mg 04/30/17 09:00 05/02/17 09:04 Cozaar PO 100 mg DAILY [facility] Administration Pravastatin Sodium 40 mg 04/30/17 09:00 05/02/17 09:06 Pravachol PO 40 mg DAILY [facility] Administration Tamsulosin HCl 0.4 mg 04/30/17 09:00 05/02/17 09:05 Flomax PO 0.4 mg DAILY [facility] Administration Tramadol HCl 50 mg 05/02/17 04:36 Ultram PO Q4 PRN Pain, moderate (4-7) Tramadol HCl 100 mg 05/02/17 04:38 05/02/17 17:16 Ultram PO 100 mg Q4 PRN Administration Pain, severe (8-10) - Patient Studies Lab Studies: Microbiology Studies 05/01/17 13:50 MRSA Culture (Admit) - Final Naris MRSA NOT DETECTED 04/30/17 16:21 MRSA Culture (Admit) - Final Naris MRSA NOT DETECTED Lab Studies 05/02/17 05/02/17 05/02/17 Range/Units 16:21 11:08 04:41 WBC (4.8-10.8) K/uL RBC (4.40-5.90) Mil/uL Hgb (12.0-18.0) g/dL Hct (35.0-51.0) % MCV (80.0-94.0) fl MCH (27.0-31.0) pg MCHC (33.0-37.0) g/dL RDW (11.5-14.5) % Plt Count (130-400) K/uL Sodium (132-148) mmol/l Potassium (3.6-5.0) MMOL/L Chloride (98-107) mmol/L Carbon Dioxide (22-30) mmol/L Anion Gap (10-20) BUN (9-20) mg/dl Creatinine (0.8-1.5) mg/dl Est GFR ( Amer) Est GFR (Non-Af Amer) POC Glucose (mg/dL) 212 H 272 H 210 H (65-110) mg/dL Random Glucose (75-110) mg/dL Calcium (8.4-10.2) mg/dL 05/02/17 05/02/17 Range/Units 04:40 04:40 WBC 6.2 (4.8-10.8) K/uL RBC 4.75 (4.40-5.90) Mil/uL Hgb 12.6 (12.0-18.0) g/dL Hct 38.2 (35.0-51.0) % MCV 80.5 (80.0-94.0) fl MCH 26.7 L (27.0-31.0) pg MCHC 33.1 (33.0-37.0) g/dL RDW 13.1 (11.5-14.5) % Plt Count 195 (130-400) K/uL Sodium 139 (132-148) mmol/l Potassium 4.1 (3.6-5.0) MMOL/L Chloride 102 (98-107) mmol/L Carbon Dioxide 24 (22-30) mmol/L Anion Gap 17 (10-20) BUN 23 H (9-20) mg/dl Creatinine 1.1 (0.8-1.5) mg/dl Est GFR ( Amer) > 60 Est GFR (Non-Af Amer) > 60 POC Glucose (mg/dL) (65-110) mg/dL Random Glucose 225 H (75-110) mg/dL Calcium 8.9 (8.4-10.2) mg/dL Laboratory Results - last 24 hr 05/02/17 05/02/17 05/02/17 04:40 04:40 04:41 WBC 6.2 RBC 4.75 Hgb 12.6 Hct 38.2 MCV 80.5 MCH 26.7 L MCHC 33.1 RDW 13.1 Plt Count 195 Sodium 139 Potassium 4.1 Chloride 102 Carbon Dioxide 24 Anion Gap 17 BUN 23 H Creatinine 1.1 Est GFR ( Amer) > 60 Est GFR (Non-Af Amer) > 60 POC Glucose (mg/dL) 210 H Random Glucose 225 H Calcium 8.9 05/02/17 05/02/17 11:08 16:21 WBC RBC Hgb Hct MCV MCH MCHC RDW Plt Count Sodium Potassium Chloride Carbon Dioxide Anion Gap BUN Creatinine Est GFR ( Amer) Est GFR (Non-Af Amer) POC Glucose (mg/dL) 272 H 212 H Random Glucose Calcium Fingerstick Blood Sugar Results: 212 Review of Systems - Review of Systems All systems: reviewed and no additional remarkable complaints except (as above) Critical Care Progress Note - Nutrition Nutrition: Nutrition Category Date Time Status Consistent Carbohydrate [DIET] Diets 05/01/17 Lunch Active
[2017-05-02] MEDS: Sodium Chloride 0.45% 1,000 ML IV SCH (21:31)
[2017-05-02] MEDS: Heparin 25,000units in D5W 25,000 UNITS/250 ML BAG IV SCH (22:27)
[2017-05-03 05:04] LABS: HEMOGLOBIN 11.4 g/dL (12.0-18.0); MEAN CELL VOLUME 79.4 fl (80.0-94.0); MEAN CORPUSCULAR HEMOGLOBIN 26.7 pg (27.0-31.0); MEAN CORPUSCULAR HGB CONC 33.6 g/dL (33.0-37.0); RBC 4.26 Mil/uL (4.40-5.90); RED CELL DISTRIBUTION WIDTH 13.1 % (11.5-14.5); WHITE BLOOD COUNT 6.4 K/uL (4.8-10.8)
[2017-05-03 05:10] LABS: BLOOD UREA NITROGEN 24 mg/dl (9-20); CALCIUM 8.7 mg/dL (8.4-10.2); GFR AFRICAN-AMERICAN > 60; GFR NON-AFRICAN AMERICAN 58
[2017-05-03] MEDS: Sodium Chloride 0.45% 1,000 ML IV SCH ×2 (05:45→14:34)
[2017-05-03] MEDS: Insulin Regular 100 units/ml SC SCH ×6 (06:14→22:28)
--- NOTE | 2017-05-03 07:45 | CP.PCM.PN ---
Subjective - Date & Time of Evaluation Date of Evaluation: 05/03/17 Time of Evaluation: 07:30 - Subjective Subjective: Patient seen and examined bedside. Complains of left lower extremity pain and swelling. Hemodynamically stable , afebrile With some dry cough. No acute issues overnight Repeat LLE Doppler US showed extensive DVT of the left leg Objective - Vital Signs/Intake and Output Vital Signs (last 24 hours): Temp Pulse Resp BP Pulse Ox 97.7 F 94 H 26 H 124/70 94 L 05/03/17 04:00 05/03/17 06:00 05/03/17 06:00 05/03/17 06:00 05/03/17 06:00 Intake and Output: 05/03/17 05/03/17 06:59 18:59 Intake Total 898 Output Total 450 Balance 448 - Medications Medications: Current Medications Acetaminophen (Tylenol 325mg Tab) 650 mg PO Q6 PRN PRN Reason: Other Ergocalciferol (Drisdol 50,000 Intl Units Cap) 1 cap PO Q7D [facility] Last Admin: 04/30/17 08:23 Dose: Not Given Glipizide (Glucotrol Xl) 10 mg PO BRK [facility] Hydrochlorothiazide (Hydrodiuril) 25 mg PO DAILY [facility] Last Admin: 05/02/17 09:05 Dose: 25 mg Heparin Sodium/Dextrose (Heparin 25,000 Units/250ml In D5w) 25,000 units in 250 mls @ 10 mls/hr IV .Q24H [facility] PRN Reason: Protocol Last Titration: 05/03/17 06:10 Dose: 11.5 mls/hr Sodium Chloride (Sodium Chloride 0.45%) 1,000 mls @ 125 mls/hr IV .Q8H [facility] Stop: 05/03/17 20:42 Last Admin: 05/03/17 05:45 Dose: 125 mls/hr Insulin Human Regular (Humulin R) 0 units SC ACCU-CHECK [facility] PRN Reason: Protocol Last Admin: 05/03/17 06:14 Dose: 2 units Lidocaine (Lidoderm) 1 ea TD DAILY [facility] Last Admin: 05/02/17 09:06 Dose: 1 ea Losartan Potassium (Cozaar) 100 mg PO DAILY [facility] Last Admin: 05/02/17 09:04 Dose: 100 mg Pravastatin Sodium (Pravachol) 40 mg PO DAILY [facility] Last Admin: 05/02/17 09:06 Dose: 40 mg Tamsulosin HCl (Flomax) 0.4 mg PO DAILY [facility] Last Admin: 05/02/17 09:05 Dose: 0.4 mg Tramadol HCl (Ultram) 50 mg PO Q4 PRN PRN Reason: Pain, moderate (4-7) Tramadol HCl (Ultram) 100 mg PO Q4 PRN PRN Reason: Pain, severe (8-10) Last Admin: 05/02/17 17:16 Dose: 100 mg - Labs Labs: 05/03/17 04:45 05/03/17 04:45 PT 14.0 Seconds (9.8-13.1) H 05/01/17 04:30 INR 1.3 (0.9-1.2) H 05/01/17 04:30 APTT 39.8 Seconds (25.6-37.1) H D 05/03/17 04:45 - Constitutional Appears: Non-toxic, No Acute Distress - Head Exam Head Exam: ATRAUMATIC, NORMAL INSPECTION, NORMOCEPHALIC - Eye Exam Eye Exam: EOMI, Normal appearance, PERRL Pupil Exam: NORMAL ACCOMODATION - ENT Exam ENT Exam: Mucous Membranes Moist, Normal Exam - Neck Exam Neck Exam: Full ROM, Normal Inspection - Respiratory Exam Respiratory Exam: Clear to Ausculation Bilateral, NORMAL BREATHING PATTERN. absent: Rales, Rhonchi, Wheezes - Cardiovascular Exam Cardiovascular Exam: REGULAR RHYTHM, RRR, +S1, +S2. absent: JVD - GI/Abdominal Exam GI & Abdominal Exam: Soft, Normal Bowel Sounds. absent: Distended, Guarding, Tenderness, Rebound - Rectal Exam Rectal Exam: Deferred - Extremities Exam Extremities Exam: Full ROM, Normal Capillary Refill, Pedal Edema. absent: Calf Tenderness Additional comments: swelling to whole LLE pulses present - Back Exam Back Exam: NORMAL INSPECTION - Neurological Exam Neurological Exam: Alert, Awake, CN II-XII Intact, Oriented x3 - Psychiatric Exam Psychiatric exam: Normal Affect, Normal Mood - Skin Skin Exam: Dry, Intact, Normal Color, Warm Assessment and Plan - Assessment and Plan (Free Text) Assessment: 82 yo male with a past medical history of Type 2 DM, essential hypertension, hypercholesterolemia, presented to ED with left lower extremity swelling and calf pain. He denies any trauma or recent injury to the leg. Denies any recent travel. Denies any history of blood clots in the past. In the ED, the patient was found to have a significant left lower extremity deep venous thrombosis extending up to the femoral vein and iliac veins . The patient does have good pedal pulses, normal capillary refill. Patient is saturating well, denies chest pain. He was started on therapeutic Lovenox. IR consulted and pt underwent Left Iliofemoral Thrombectomy and post procedure placed on therapeutic anticoagulation. Yesterday noted more swelling to LLE and repeat doppler showed : left lower extremity deep venous thrombosis with occlusive thrombus from the groin to the calf IR informed and case discussed for potential repeat direct catheter Thrombolysis 1. Extensive Left lower extremity deep venous thrombosis s/p Thrombectomy Doppler US showed extensive DVt to LLE extending up to femoral vein on admission --unprovoked s/p thrombectomy abnd currently on heparin drip Doppler US repeated since noted more swelling to LLE. Us showed occlusive thrombus from groin to calf Called and discussed with Dr. Jeong who will review imaging for possible repeat direct catheter thrombolysis . compression stockings removed Will need oral anticoagulant x 6 months. Hem/onc consulted 2. Uncontrolled Type 2 Diabetes mellitus Moderate carbohydrate consistent diet Regular insulin sliding scale, accucheks AC+HS Hold Metformin while in the hospital Increased Glucotrol to 10 mg XL daily 3. Essential hypertension controlled Losartan 100 mg po daily HCTZ 25 mg po daily 4. Hypercholesterolemia chronic Continue home statin 5. BPH on Flomax 6. Mild azotemia BUN 24 hydrate slowly 7. DVT prophylaxis on heparin drip
--- NOTE | 2017-05-03 09:35 | RAD ---
PROCEDURE: CHEST RADIOGRAPH, 1 VIEW HISTORY: productive cough COMPARISON: Chest radiograph dated 04/29/2017 FINDINGS: LUNGS: Stable chronic prominence of the bilateral interstitial markings. No focal consolidation. PLEURA: No pneumothorax or pleural fluid seen. CARDIOVASCULAR: Atherosclerotic aortic calcifications. Cardiomediastinal silhouette unchanged. OSSEOUS STRUCTURES: Unchanged. VISUALIZED UPPER ABDOMEN: Normal. OTHER FINDINGS: None. IMPRESSION: Stable chronic prominence of the bilateral interstitial markings. No focal consolidation or pleural effusion.
--- NOTE | 2017-05-03 09:51 | US ---
PROCEDURE: Duplex ultrasound of the left lower extremity arteries. 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 TECHNIQUE: Grayscale and duplex Doppler evaluation of the left. FINDINGS: LEFT LOWER EXTREMITY: LEFT COMMON FEMORAL ARTERY: Widely patent. Maximal flow velocity of 94.3 cm/s. Biphasic waveform LEFT SUPERFICIAL FEMORAL ARTERY: * Proximal: Widely patent. Maximal flow velocity of 94.3 cm/s. Biphasic waveform * Mid: Widely patent. Maximal flow velocity of 101.3 cm/s. Biphasic waveform * Distal: Widely patent. Maximal flow velocity of 97.8 cm/s. Biphasic waveform LEFT POPLITEAL ARTERY:Widely patent. Maximal flow velocity of 104.8 cm/s. Biphasic waveform LEFT ANTERIOR TIBIAL ARTERY: Not identified. LEFT POSTERIOR TIBIAL ARTERY: Widely patent. Maximal flow velocity of 98.0 cm/s. Biphasic waveform LEFT DORSALIS PEDIS ARTERY: Widely patent. Maximal flow velocity of 47.8 cm/s. Monophasic waveform OTHER FINDINGS: None. IMPRESSION: Nonvisualization of the anterior tibial artery. Documented flow in the remaining visualized arteries.
[2017-05-03] MEDS: GlipiZIDE 10 mg SR Tab PO SCH (10:33)
[2017-05-03] MEDS: Lidocaine 5% Patch TD SCH (10:34)
[2017-05-03] MEDS: Pravastatin Sodium 40 MG TAB PO SCH (10:35)
--- NOTE | 2017-05-03 10:56 | CP.CCUPN ---
CCU Subjective - Physician Review Subjective (Free Text): Left leg appears softer and less edematous subjectively, FANY wraps were not replaced overnight and patient's leg elevated with 2-3 pillows for edema. He denies any dyspnea at bed rest, nor SOB/Chest discomfort/palpitations. On 0.45% saline at125 ml/hr post contrast study for thrombectomy. Other VS and I/Os reviewed. ROS: No other pertinent negs or positives on 10+ system review. PMSFH: All other Nursing and physician documentation reviewed to date; no new pertinent info noted relevant to current medical problems. EXAM- HEENT: no icterus, slight ptosis on R, irregular pupils bilaterally. No icterus , no gaze preference. NECK: no visible JVD, supple, carotids equal upstroke bilat/no bruits CHEST: decreased BS bases, no wheezes audible HEART: regular distant, S1S2, no murmur audible, no rubs. ABD: soft, no distention, no tympany, no palp tenderness, BS hypoactive EXT: +bilat edema. LLE: No peripheral/ digital cyanosis, no calf tenderness or palpable cords, distal pulses intact as above via Doppler signal. + warmth, no coolness or paleness. NEURO: no gross focal motor deficits. SKIN: no rashes CXR: (my interp) Clear bilaterally. LABS: WBC= 6.4 HGB= 11.4 PLTs= 195K Na= 136 K= 4.0 HCO3=27 CL= 97 BUN/Cr= 24/1.2 BS= 184 MAJOR PROBLEMS: 1. Large DVT involving CFV, SFV, Popliteal Venous system of LLE; with s/p Thrombectomy on 05/01 2. 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 Mild Azotemia, not worse post-contrast administration 4. DM II PLAN: 1. Consider AC with interim Heparin IV drip over Lovenox for now. 2. Re-eval by IR. 3. Hold on tight FANY wraps of LLE overnight, trial of 3 pillow leg elevation. 4. Repeat Arterial / Venous Doppler studies of LLE results reviewed. Possible consideration for repeat attempt at thrombectomy. 5. IVF hydration. CCU Objective - Vital Signs / Intake & Output Vital Signs (Last 4 hours): Vital Signs Temp Pulse Resp BP Pulse Ox 05/03/17 10:32 99 H 112/60 05/03/17 10:00 98 H 16 112/60 93 L 05/03/17 08:00 98.7 F 111 H 21 123/74 95 Intake and Output (Last 8hrs): Intake & Output 05/02/17 05/03/17 05/03/17 22:59 06:59 14:59 Intake Total 63 835 Output Total 400 250 100 Balance -337 585 -100 Intake: IV 63 800 Intake, Piggyback 35 Output: Urine 400 250 100 Urine, Voided 400 250 100 Other: # Voids Urine, Voided 1 - Medications Active Medications: Active Medications Generic Name Dose Route Start Last Admin Trade Name Freq PRN Reason Stop Dose Admin Acetaminophen 650 mg 05/02/17 00:08 Tylenol 325mg Tab PO Q6 PRN Other Ergocalciferol 1 cap 04/30/17 09:00 04/30/17 08:23 Drisdol 50,000 Intl Units Cap PO Not Given Q7D MARYAM Glipizide 10 mg 05/03/17 08:00 05/03/17 10:33 Glucotrol Xl PO 10 mg BRK MARYAM Administration Hydrochlorothiazide 25 mg 04/30/17 09:00 05/03/17 10:34 Hydrodiuril PO 25 mg DAILY MARYAM Administration Heparin Sodium/Dextrose 25,000 units in 250 mls @ 10 mls/hr 05/02/17 20:30 06:10 Heparin 25,000 Units/250ml In D5w IV 11.5 mls/hr .Q24H MARYAM Titration Protocol Sodium Chloride 1,000 mls @ 125 mls/hr 05/02/17 20:45 05/03/17 05:45 Sodium Chloride 0.45% IV 05/03/17 20:42 125 mls/hr .Q8H MARYAM Administration Insulin Human Regular 0 units 04/29/17 23:00 05/03/17 06:14 Humulin R SC 2 units ACCU-CHECK MARYAM Administration Protocol Lidocaine 1 ea 04/30/17 09:00 05/03/17 10:34 Lidoderm TD 1 ea DAILY MARYAM Administration Losartan Potassium 100 mg 04/30/17 09:00 05/03/17 10:32 Cozaar PO 100 mg DAILY MARYAM Administration Pravastatin Sodium 40 mg 04/30/17 09:00 05/03/17 10:35 Pravachol PO 40 mg DAILY MARYAM Administration Tamsulosin HCl 0.4 mg 04/30/17 09:00 05/03/17 10:33 Flomax PO 0.4 mg DAILY MARYAM Administration Tramadol HCl 50 mg 05/02/17 04:36 Ultram PO Q4 PRN Pain, moderate (4-7) Tramadol HCl 100 mg 05/02/17 04:38 05/02/17 17:16 Ultram PO 100 mg Q4 PRN Administration Pain, severe (8-10) - Patient Studies Lab Studies: Microbiology Studies 05/01/17 13:50 MRSA Culture (Admit) - Final Naris MRSA NOT DETECTED 04/30/17 16:21 MRSA Culture (Admit) - Final Naris MRSA NOT DETECTED Lab Studies 05/03/17 05/03/17 05/03/17 Range/Units 05:24 04:45 04:45 WBC (4.8-10.8) K/uL RBC (4.40-5.90) Mil/uL Hgb (12.0-18.0) g/dL Hct (35.0-51.0) % MCV (80.0-94.0) fl MCH (27.0-31.0) pg MCHC (33.0-37.0) g/dL RDW (11.5-14.5) % Plt Count (130-400) K/uL APTT 39.8 H D (25.6-37.1) Seconds Sodium 136 (132-148) mmol/l Potassium 4.0 (3.6-5.0) MMOL/L Chloride 97 L (98-107) mmol/L Carbon Dioxide 27 (22-30) mmol/L Anion Gap 16 (10-20) BUN 24 H (9-20) mg/dl Creatinine 1.2 (0.8-1.5) mg/dl Est GFR ( Amer) > 60 Est GFR (Non-Af Amer) 58 POC Glucose (mg/dL) 174 H (65-110) mg/dL Random Glucose 184 H (75-110) mg/dL Calcium 8.7 (8.4-10.2) mg/dL 05/03/17 05/02/17 05/02/17 Range/Units 04:45 22:02 21:08 WBC 6.4 (4.8-10.8) K/uL RBC 4.26 L (4.40-5.90) Mil/uL Hgb 11.4 L (12.0-18.0) g/dL Hct 33.8 L (35.0-51.0) % MCV 79.4 L (80.0-94.0) fl MCH 26.7 L (27.0-31.0) pg MCHC 33.6 (33.0-37.0) g/dL RDW 13.1 (11.5-14.5) % Plt Count 195 (130-400) K/uL APTT 32.5 (25.6-37.1) Seconds Sodium (132-148) mmol/l Potassium (3.6-5.0) MMOL/L Chloride (98-107) mmol/L Carbon Dioxide (22-30) mmol/L Anion Gap (10-20) BUN (9-20) mg/dl Creatinine (0.8-1.5) mg/dl Est GFR ( Amer) Est GFR (Non-Af Amer) POC Glucose (mg/dL) 187 H (65-110) mg/dL Random Glucose (75-110) mg/dL Calcium (8.4-10.2) mg/dL 05/02/17 05/02/17 Range/Units 16:21 11:08 WBC (4.8-10.8) K/uL RBC (4.40-5.90) Mil/uL Hgb (12.0-18.0) g/dL Hct (35.0-51.0) % MCV (80.0-94.0) fl MCH (27.0-31.0) pg MCHC (33.0-37.0) g/dL RDW (11.5-14.5) % Plt Count (130-400) K/uL APTT (25.6-37.1) Seconds Sodium (132-148) mmol/l Potassium (3.6-5.0) MMOL/L Chloride (98-107) mmol/L Carbon Dioxide (22-30) mmol/L Anion Gap (10-20) BUN (9-20) mg/dl Creatinine (0.8-1.5) mg/dl Est GFR ( Amer) Est GFR (Non-Af Amer) POC Glucose (mg/dL) 212 H 272 H (65-110) mg/dL Random Glucose (75-110) mg/dL Calcium (8.4-10.2) mg/dL Laboratory Results - last 24 hr 05/02/17 05/02/17 05/02/17 11:08 16:21 21:08 WBC RBC Hgb Hct MCV MCH MCHC RDW Plt Count APTT Sodium Potassium Chloride Carbon Dioxide Anion Gap BUN Creatinine Est GFR ( Amer) Est GFR (Non-Af Amer) POC Glucose (mg/dL) 272 H 212 H 187 H Random Glucose Calcium 05/02/17 05/03/17 05/03/17 22:02 04:45 04:45 WBC 6.4 RBC 4.26 L Hgb 11.4 L Hct 33.8 L MCV 79.4 L MCH 26.7 L MCHC 33.6 RDW 13.1 Plt Count 195 APTT 32.5 Sodium 136 Potassium 4.0 Chloride 97 L Carbon Dioxide 27 Anion Gap 16 BUN 24 H Creatinine 1.2 Est GFR ( Amer) > 60 Est GFR (Non-Af Amer) 58 POC Glucose (mg/dL) Random Glucose 184 H Calcium 8.7 05/03/17 05/03/17 04:45 05:24 WBC RBC Hgb Hct MCV MCH MCHC RDW Plt Count APTT 39.8 H D Sodium Potassium Chloride Carbon Dioxide Anion Gap BUN Creatinine Est GFR ( Amer) Est GFR (Non-Af Amer) POC Glucose (mg/dL) 174 H Random Glucose Calcium Fingerstick Blood Sugar Results: 174 Review of Systems - Review of Systems All systems: reviewed and no additional remarkable complaints except (as above) Critical Care Progress Note - Nutrition Nutrition: Nutrition Category Date Time Status NPO Diet [DIET] Diets 05/03/17 Breakfast Active
[2017-05-03] MEDS: Heparin 25,000units in D5W 25,000 UNITS/250 ML BAG IV SCH (23:51)
[2017-05-04] MEDS ORDERED: Sodium Chloride 0.9% 1,000 ML IV SCH (00:30)
[2017-05-04 05:35] LABS: BASO % 0.5 % (0.0-2.0); EOS # 0.2 K/uL (0.0-0.7); EOS % 4.4 % (0.0-4.0); HEMOGLOBIN 10.6 g/dL (12.0-18.0); LYMPH % 35.5 % (20.0-40.0); MEAN CELL VOLUME 79.4 fl (80.0-94.0); MEAN CORPUSCULAR HEMOGLOBIN 26.3 pg (27.0-31.0); MEAN CORPUSCULAR HGB CONC 33.1 g/dL (33.0-37.0); MEAN PLATELET VOLUME 7.5 fl (7.2-11.7); MONO # 0.8 K/uL (0.0-0.8); MONO % 13.5 % (0.0-10.0); NEUT # 2.6 K/uL (1.8-7.0); NEUT % 46.1 % (50.0-75.0); NRBC % 0.1 % (0.0-0.0); RBC 4.02 Mil/uL (4.40-5.90); RED CELL DISTRIBUTION WIDTH 12.8 % (11.5-14.5); WHITE BLOOD COUNT 5.7 K/uL (4.8-10.8)
[2017-05-04 05:48] LABS: BLOOD UREA NITROGEN 16 mg/dl (9-20); CALCIUM 8.8 mg/dL (8.4-10.2); GFR AFRICAN-AMERICAN > 60; GFR NON-AFRICAN AMERICAN > 60
[2017-05-04] MEDS: Insulin Regular 100 units/ml SC SCH ×4 (06:26→22:02)
--- NOTE | 2017-05-04 07:51 | CP.PCM.PN ---
Subjective - Date & Time of Evaluation Date of Evaluation: 05/04/17 Time of Evaluation: 11:00 - Subjective Subjective: Patient seen and examined bedside. Lying in bed in NAD. With some discomfort and swelling to LLE Minimal coughing spells and some clear sputum production. Hemodynamically stable, afebrile No acute issues overnight on Heparin drip for direct catheter thrombolysis on Sunday Objective - Vital Signs/Intake and Output Vital Signs (last 24 hours): Temp Pulse Resp BP Pulse Ox 98.2 F 87 13 135/68 96 05/04/17 04:00 05/04/17 06:00 05/04/17 06:00 05/04/17 06:00 05/04/17 06:00 Intake and Output: 05/04/17 05/04/17 06:59 18:59 Intake Total 1465 Output Total 1000 Balance 465 - Medications Medications: Current Medications Acetaminophen (Tylenol 325mg Tab) 650 mg PO Q6 PRN PRN Reason: Other Last Admin: 05/03/17 11:58 Dose: 650 mg Ergocalciferol (Drisdol 50,000 Intl Units Cap) 1 cap PO Q7D [facility] Last Admin: 04/30/17 08:23 Dose: Not Given Glipizide (Glucotrol Xl) 10 mg PO BRK MARYAM Last Admin: 05/03/17 10:33 Dose: 10 mg Hydrochlorothiazide (Hydrodiuril) 25 mg PO DAILY MARYAM Last Admin: 05/03/17 10:34 Dose: 25 mg Heparin Sodium/Dextrose (Heparin 25,000 Units/250ml In D5w) 25,000 units in 250 mls @ 10 mls/hr IV .Q24H MARYAM PRN Reason: Protocol Last Admin: 05/03/17 23:51 Dose: 11.5 mls/hr Sodium Chloride (Sodium Chloride 0.9%) 1,000 mls @ 75 mls/hr IV .[id number] MARYAM Stop: 05/04/17 13:49 Last Admin: 05/04/17 00:35 Dose: 75 mls/hr Insulin Human Regular (Humulin R) 0 units SC ACCU-CHECK MARYAM PRN Reason: Protocol Last Admin: 05/04/17 06:26 Dose: Not Given Lidocaine (Lidoderm) 1 ea TD DAILY MARYAM Last Admin: 05/03/17 10:34 Dose: 1 ea Losartan Potassium (Cozaar) 100 mg PO DAILY [facility] Last Admin: 05/03/17 10:32 Dose: 100 mg Pravastatin Sodium (Pravachol) 40 mg PO DAILY [facility] Last Admin: 05/03/17 10:35 Dose: 40 mg Tamsulosin HCl (Flomax) 0.4 mg PO DAILY [facility] Last Admin: 05/03/17 10:33 Dose: 0.4 mg Tramadol HCl (Ultram) 50 mg PO Q4 PRN PRN Reason: Pain, moderate (4-7) Tramadol HCl (Ultram) 100 mg PO Q4 PRN PRN Reason: Pain, severe (8-10) Last Admin: 05/03/17 21:25 Dose: 100 mg - Labs Labs: 05/04/17 05:00 05/04/17 05:00 PT 14.0 Seconds (9.8-13.1) H 05/01/17 04:30 INR 1.3 (0.9-1.2) H 05/01/17 04:30 APTT 51.7 Seconds (25.6-37.1) H 05/04/17 05:00 - Constitutional Appears: Non-toxic, No Acute Distress - Head Exam Head Exam: ATRAUMATIC, NORMAL INSPECTION, NORMOCEPHALIC - Eye Exam Eye Exam: EOMI, PERRL Pupil Exam: NORMAL ACCOMODATION - ENT Exam ENT Exam: Mucous Membranes Moist, Normal Exam - Neck Exam Neck Exam: Full ROM, Normal Inspection - Respiratory Exam Respiratory Exam: Clear to Ausculation Bilateral, NORMAL BREATHING PATTERN. absent: Prolonged Expiratory Phase, Wheezes, Respiratory Distress - Cardiovascular Exam Cardiovascular Exam: REGULAR RHYTHM, RRR, +S1, +S2. absent: JVD - GI/Abdominal Exam GI & Abdominal Exam: Soft, Normal Bowel Sounds. absent: Distended, Guarding, Tenderness, Rebound - Rectal Exam Rectal Exam: Deferred - Extremities Exam Additional comments: LLE swelling pulses present - Back Exam Back Exam: NORMAL INSPECTION - Neurological Exam Neurological Exam: Alert, Awake, CN II-XII Intact, Oriented x3 - Psychiatric Exam Psychiatric exam: Normal Affect, Normal Mood - Skin Skin Exam: Dry, Intact, Normal Color, Warm Assessment and Plan - Assessment and Plan (Free Text) Assessment: 82 yo male with a past medical history of Type 2 DM, essential hypertension, hypercholesterolemia, presented to ED with left lower extremity swelling and calf pain. He denies any trauma or recent injury to the leg. Denies any recent travel. Denies any history of blood clots in the past. In the ED, the patient was found to have a significant left lower extremity deep venous thrombosis extending up to the femoral vein and iliac veins . The patient does have good pedal pulses, normal capillary refill. Patient is saturating well, denies chest pain. He was started on therapeutic Lovenox. IR consulted and pt underwent Left Iliofemoral Thrombectomy and post procedure placed on therapeutic anticoagulation. 1 day post procedure noted more swelling to LLE and repeat doppler showed : left lower extremity deep venous thrombosis with occlusive thrombus from the groin to the calf IR informed and case discussed for potential repeat direct catheter Thrombolysis nwith Dr. Jeong . plan for direct catheter thrombolysis with possible stent placement and IVC filter on Sunday 1. Extensive Left lower extremity deep venous thrombosis s/p Thrombectomy Doppler US showed extensive DVt to LLE extending up to femoral vein on admission --unprovoked s/p thrombectomy and currently on heparin drip Repeat Doppler US 1 day post thrombectomy showed occlusive thrombus from groin to calf Called and discussed with Dr. Jeong. Plan for direct catheter thrombolysis possible stent placement and IVC filter placement on Sunday Continue Heparin drip for now Transfer to telemetry Hem/onc consulted 2. Uncontrolled Type 2 Diabetes mellitus Moderate carbohydrate consistent diet Regular insulin sliding scale, accucheks AC+HS Hold Metformin while in the hospital Increased Glucotrol to 10 mg XL daily 3. Essential hypertension controlled Losartan 100 mg po daily HCTZ 25 mg po daily 4. Hypercholesterolemia chronic Continue home statin 5. BPH on Flomax 6. Mild azotemia BUN 24 hydrate slowly 7. DVT prophylaxis on heparin drip
[2017-05-04] MEDS: GlipiZIDE 10 mg SR Tab PO SCH (08:34)
[2017-05-04] MEDS: Lidocaine 5% Patch TD SCH (08:35)
[2017-05-04] MEDS: Pravastatin Sodium 40 MG TAB PO SCH (08:35)
[2017-05-04 09:45] LABS: TROPONIN I 0.024 ng/mL (0.00-0.120)
--- NOTE | 2017-05-04 11:22 | CP.PCM.PN ---
Subjective - Date & Time of Evaluation Date of Evaluation: 05/04/17 Time of Evaluation: 09:00 - Subjective Subjective: Patient sitting up eating breakfast. Objective - Vital Signs/Intake and Output Vital Signs (last 24 hours): Temp Pulse Resp BP Pulse Ox 97.9 F 105 H 15 129/91 H 96 05/04/17 08:00 05/04/17 08:00 05/04/17 08:00 05/04/17 08:34 05/04/17 08:00 Intake and Output: 05/04/17 05/04/17 06:59 18:59 Intake Total 1465 173 Output Total 1000 250 Balance 465 -77 - Medications Medications: Current Medications Acetaminophen (Tylenol 325mg Tab) 650 mg PO Q6 PRN PRN Reason: Other Last Admin: 05/03/17 11:58 Dose: 650 mg Ergocalciferol (Drisdol 50,000 Intl Units Cap) 1 cap PO Q7D [facility] Last Admin: 04/30/17 08:23 Dose: Not Given Glipizide (Glucotrol Xl) 10 mg PO BRK [facility] Last Admin: 05/04/17 08:34 Dose: 10 mg Hydrochlorothiazide (Hydrodiuril) 25 mg PO DAILY [facility] Last Admin: 05/04/17 08:34 Dose: 25 mg Heparin Sodium/Dextrose (Heparin 25,000 Units/250ml In D5w) 25,000 units in 250 mls @ 10 mls/hr IV .Q24H MARYAM PRN Reason: Protocol Last Admin: 05/03/17 23:51 Dose: 11.5 mls/hr Insulin Human Regular (Humulin R) 0 units SC ACCU-CHECK [facility] PRN Reason: Protocol Last Admin: 05/04/17 06:26 Dose: Not Given Lidocaine (Lidoderm) 1 ea TD DAILY [facility] Last Admin: 05/04/17 08:35 Dose: 1 ea Losartan Potassium (Cozaar) 100 mg PO DAILY [facility] Last Admin: 05/04/17 08:34 Dose: 100 mg Pravastatin Sodium (Pravachol) 40 mg PO DAILY [facility] Last Admin: 05/04/17 08:35 Dose: 40 mg Tamsulosin HCl (Flomax) 0.4 mg PO DAILY [facility] Last Admin: 05/04/17 08:34 Dose: 0.4 mg Tramadol HCl (Ultram) 50 mg PO Q4 PRN PRN Reason: Pain, moderate (4-7) Last Admin: 05/04/17 08:56 Dose: 50 mg Tramadol HCl (Ultram) 100 mg PO Q4 PRN PRN Reason: Pain, severe (8-10) Last Admin: 05/03/17 21:25 Dose: 100 mg - Labs Labs: 05/04/17 05:00 05/04/17 05:00 PT 14.0 Seconds (9.8-13.1) H 05/01/17 04:30 INR 1.3 (0.9-1.2) H 05/01/17 04:30 APTT 51.7 Seconds (25.6-37.1) H 05/04/17 05:00 - Constitutional Appears: Well, Non-toxic, No Acute Distress - Head Exam Head Exam: ATRAUMATIC, NORMAL INSPECTION, NORMOCEPHALIC - Eye Exam Eye Exam: EOMI - ENT Exam ENT Exam: Mucous Membranes Moist - Neck Exam Neck Exam: Normal Inspection - Respiratory Exam Respiratory Exam: Rales, NORMAL BREATHING PATTERN - Cardiovascular Exam Cardiovascular Exam: REGULAR RHYTHM, +S1, +S2 - GI/Abdominal Exam GI & Abdominal Exam: Normal Bowel Sounds - Extremities Exam Extremities Exam: Pedal Edema - Neurological Exam Neurological Exam: Alert, Awake, CN II-XII Intact, Oriented x3 Assessment and Plan - Assessment and Plan (Free Text) Assessment: 82 y/o male with pmx of DM/HTN/hypercholesterolemia presents with left lower leg DVT -Left lower leg DVT: suspect old with Post thrombotic syndrome developing, Patient will benefit from director long term care anticoagulation consider eliquis oral -obtain age appropriate cancer screening and obtain heme.onc consult for underlying pro-thrombotic states, check Factor C/Factor S/anti-thrombin level/ factor V leiden -DM: continue home diabetic medications, check HBA1c -HTN: continue Bp control -DVT ppx: rx with heprain IV -PUD ppx protonix -Patient is at risk of CAD: and will also benefit from asa and statin with AV julisa cheryl -Please obtain vascular consult and monitor for compartment syndrome. -Patient remains hemodynamically stable. -PT/OT -Activity as toelrated -Fall precautions
--- NOTE | 2017-05-04 13:24 | PCM.IRP ---
History of Present Illness - History of Present Illness History of Present Illness: Mr. Piedra has iliofemoral DVT. Venogram and thrombectomy performed earlier showed chronic DVT iliac vein and acute DVT femoral vein. Pt had near complete removal of femoral vein thrombus. Follow up duplex showed recurrent femoral DVT. Pt remains symptomatic. Plan: Catheter directed thrombolysis with overnight TPA infusion, iliac vein stent, and IVC filter placement. Objective - Vital Signs/Intake and Output Vital Signs (last 24 hours): Vital Signs - 24 hr 05/03/17 05/03/17 05/03/17 14:00 16:00 17:48 Temperature 98.4 F Pulse Rate 100 H 99 H 92 H Respiratory 18 16 14 Rate Blood Pressure 112/57 L 103/78 117/68 O2 Sat by Pulse 96 96 95 Oximetry 05/03/17 05/03/17 05/04/17 20:00 22:00 00:00 Temperature 98.6 F 99.4 F Pulse Rate 95 H 99 H 100 H Respiratory 17 19 25 H Rate Blood Pressure 135/66 140/71 137/65 O2 Sat by Pulse 96 98 92 L Oximetry 05/04/17 05/04/17 05/04/17 02:00 04:00 06:00 Temperature 98.2 F Pulse Rate 98 H 91 H 87 Respiratory 22 20 13 Rate Blood Pressure 129/63 122/67 135/68 O2 Sat by Pulse 94 L 95 96 Oximetry 05/04/17 05/04/17 05/04/17 08:00 08:34 10:00 Temperature 97.9 F Pulse Rate 105 H 95 H Respiratory 15 19 Rate Blood Pressure 129/101 H 129/91 H 155/88 H O2 Sat by Pulse 96 96 Oximetry 05/04/17 12:00 Temperature 99.4 F Pulse Rate 98 H Respiratory 14 Rate Blood Pressure 134/72 O2 Sat by Pulse 95 Oximetry Intake and Output (last 12 hours): Intake & Output 05/03/17 05/04/17 05/04/17 18:59 06:59 18:59 Intake Total 1603 1465 729 Output Total 900 1000 650 Balance 703 465 79 Weight 185 lb Intake: IV 1403 1350 369 Intake, Piggyback 115 Oral 200 360 Output: Urine 900 1000 650 Urine, Voided 900 1000 650 Other: # Voids Urine, Voided 1 - Medications Medications: Current Medications Acetaminophen (Tylenol 325mg Tab) 650 mg PO Q6 PRN PRN Reason: Other Last Admin: 05/03/17 11:58 Dose: 650 mg Ergocalciferol (Drisdol 50,000 Intl Units Cap) 1 cap PO Q7D [facility] Last Admin: 04/30/17 08:23 Dose: Not Given Glipizide (Glucotrol Xl) 10 mg PO BRK [facility] Last Admin: 05/04/17 08:34 Dose: 10 mg Hydrochlorothiazide (Hydrodiuril) 25 mg PO DAILY [facility] Last Admin: 05/04/17 08:34 Dose: 25 mg Heparin Sodium/Dextrose (Heparin 25,000 Units/250ml In D5w) 25,000 units in 250 mls @ 10 mls/hr IV .Q24H MARYAM PRN Reason: Protocol Last Admin: 05/03/17 23:51 Dose: 11.5 mls/hr Insulin Human Regular (Humulin R) 0 units SC ACCU-CHECK [facility] PRN Reason: Protocol Last Admin: 05/04/17 12:33 Dose: Not Given Lidocaine (Lidoderm) 1 ea TD DAILY [facility] Last Admin: 05/04/17 08:35 Dose: 1 ea Losartan Potassium (Cozaar) 100 mg PO DAILY [facility] Last Admin: 05/04/17 08:34 Dose: 100 mg Pravastatin Sodium (Pravachol) 40 mg PO DAILY [facility] Last Admin: 05/04/17 08:35 Dose: 40 mg Tamsulosin HCl (Flomax) 0.4 mg PO DAILY [facility] Last Admin: 05/04/17 08:34 Dose: 0.4 mg Tramadol HCl (Ultram) 50 mg PO Q4 PRN PRN Reason: Pain, moderate (4-7) Last Admin: 05/04/17 08:56 Dose: 50 mg Tramadol HCl (Ultram) 100 mg PO Q4 PRN PRN Reason: Pain, severe (8-10) Last Admin: 05/03/17 21:25 Dose: 100 mg - Labs Labs (last 24 hours): Laboratory Results - last 24 hr 05/03/17 05/03/17 05/03/17 16:26 17:15 22:26 WBC RBC Hgb Hct MCV MCH MCHC RDW Plt Count MPV Neut % (Auto) Lymph % (Auto) [place] % (Auto) Eos % (Auto) Baso % (Auto) Neut # (Auto) Lymph # (Auto) [place] # (Auto) Eos # (Auto) Baso # (Auto) APTT 48.6 H D Sodium Potassium Chloride Carbon Dioxide Anion Gap BUN Creatinine Est GFR ( Amer) Est GFR (Non-Af Amer) POC Glucose (mg/dL) 181 H 132 H Random Glucose Calcium Troponin I NT-Pro-B Natriuret Pep 05/03/17 05/04/17 05/04/17 23:20 05:00 05:00 WBC 5.7 RBC 4.02 L Hgb 10.6 L Hct 31.9 L MCV 79.4 L MCH 26.3 L MCHC 33.1 RDW 12.8 Plt Count 212 MPV 7.5 Neut % (Auto) 46.1 L Lymph % (Auto) 35.5 [place] % (Auto) 13.5 H Eos % (Auto) 4.4 H Baso % (Auto) 0.5 Neut # (Auto) 2.6 Lymph # (Auto) 2.0 [place] # (Auto) 0.8 Eos # (Auto) 0.2 Baso # (Auto) 0.0 APTT 49.8 H 51.7 H Sodium Potassium Chloride Carbon Dioxide Anion Gap BUN Creatinine Est GFR ( Amer) Est GFR (Non-Af Amer) POC Glucose (mg/dL) Random Glucose Calcium Troponin I NT-Pro-B Natriuret Pep 05/04/17 05/04/17 05/04/17 05:00 05:00 06:03 WBC RBC Hgb Hct MCV MCH MCHC RDW Plt Count MPV Neut % (Auto) Lymph % (Auto) [place] % (Auto) Eos % (Auto) Baso % (Auto) Neut # (Auto) Lymph # (Auto) [place] # (Auto) Eos # (Auto) Baso # (Auto) APTT Sodium 140 Potassium 3.7 Chloride 101 Carbon Dioxide 27 Anion Gap 16 BUN 16 Creatinine 1.0 Est GFR ( Amer) > 60 Est GFR (Non-Af Amer) > 60 POC Glucose (mg/dL) 117 H Random Glucose 128 H Calcium 8.8 Troponin I 0.0240 NT-Pro-B Natriuret Pep 146 05/04/17 11:15 WBC RBC Hgb Hct MCV MCH MCHC RDW Plt Count MPV Neut % (Auto) Lymph % (Auto) [place] % (Auto) Eos % (Auto) Baso % (Auto) Neut # (Auto) Lymph # (Auto) [place] # (Auto) Eos # (Auto) Baso # (Auto) APTT Sodium Potassium Chloride Carbon Dioxide Anion Gap BUN Creatinine Est GFR ( Amer) Est GFR (Non-Af Amer) POC Glucose (mg/dL) 162 H Random Glucose Calcium Troponin I NT-Pro-B Natriuret Pep
[2017-05-04] MEDS: Heparin 25,000units in D5W 25,000 UNITS/250 ML BAG IV SCH (21:58)
[2017-05-05] MEDS: Insulin Regular 100 units/ml SC SCH ×3 (06:20→18:28)
[2017-05-05 08:02] LABS: MEAN CELL VOLUME 80.2 fl (80.0-94.0); MEAN CORPUSCULAR HEMOGLOBIN 26.6 pg (27.0-31.0); MEAN CORPUSCULAR HGB CONC 33.2 g/dL (33.0-37.0); RBC 4.13 Mil/uL (4.40-5.90); WHITE BLOOD COUNT 5.3 K/uL (4.8-10.8)
[2017-05-05 08:24] LABS: BLOOD UREA NITROGEN 14 mg/dl (9-20); CALCIUM 9.1 mg/dL (8.4-10.2); GFR AFRICAN-AMERICAN > 60; GFR NON-AFRICAN AMERICAN > 60
[2017-05-05] MEDS: GlipiZIDE 10 mg SR Tab PO SCH (09:00)
[2017-05-05] MEDS: Pravastatin Sodium 40 MG TAB PO SCH (09:01)
[2017-05-05] MEDS: Lidocaine 5% Patch TD SCH (09:02)
--- NOTE | 2017-05-05 09:50 | CP.PCM.PN ---
Subjective - Date & Time of Evaluation Date of Evaluation: 05/05/17 Time of Evaluation: 09:30 - Subjective Subjective: No fever complains of left leg swelling and pain no CP no SOB mild lower abd discomfort Objective - Vital Signs/Intake and Output Vital Signs (last 24 hours): Temp Pulse Resp BP Pulse Ox 98.5 F 76 18 156/72 H 96 05/05/17 08:05 05/05/17 08:59 05/05/17 08:05 05/05/17 08:59 05/05/17 08:05 Intake and Output: 05/05/17 05/05/17 06:59 18:59 Intake Total 250 Balance 250 - Medications Medications: Current Medications Acetaminophen (Tylenol 325mg Tab) 650 mg PO Q6 PRN PRN Reason: Other Last Admin: 05/03/17 11:58 Dose: 650 mg Ergocalciferol (Drisdol 50,000 Intl Units Cap) 1 cap PO Q7D [facility] Last Admin: 04/30/17 08:23 Dose: Not Given Glipizide (Glucotrol Xl) 10 mg PO BRK [facility] Last Admin: 05/05/17 09:00 Dose: 10 mg Hydrochlorothiazide (Hydrodiuril) 25 mg PO DAILY [facility] Last Admin: 05/05/17 09:00 Dose: 25 mg Insulin Human Regular (Humulin R) 0 units SC ACCU-CHECK [facility] PRN Reason: Protocol Last Admin: 05/05/17 06:20 Dose: Not Given Lidocaine (Lidoderm) 1 ea TD DAILY [facility] Last Admin: 05/05/17 09:02 Dose: 1 ea Losartan Potassium (Cozaar) 100 mg PO DAILY [facility] Last Admin: 05/05/17 08:59 Dose: 100 mg Pravastatin Sodium (Pravachol) 40 mg PO DAILY [facility] Last Admin: 05/05/17 09:01 Dose: 40 mg Tamsulosin HCl (Flomax) 0.4 mg PO DAILY [facility] Last Admin: 05/05/17 09:00 Dose: 0.4 mg Tramadol HCl (Ultram) 50 mg PO Q4 PRN PRN Reason: Pain, moderate (4-7) Last Admin: 05/04/17 17:25 Dose: 50 mg Tramadol HCl (Ultram) 100 mg PO Q4 PRN PRN Reason: Pain, severe (8-10) Last Admin: 05/03/17 21:25 Dose: 100 mg - Labs Labs: 05/05/17 06:50 05/05/17 06:50 PT 14.0 Seconds (9.8-13.1) H 05/01/17 04:30 INR 1.3 (0.9-1.2) H 05/01/17 04:30 APTT 52.0 Seconds (25.6-37.1) H 05/05/17 06:50 - Constitutional Appears: No Acute Distress - Head Exam Head Exam: NORMAL INSPECTION, NORMOCEPHALIC - Eye Exam Eye Exam: EOMI, Normal appearance Pupil Exam: NORMAL ACCOMODATION - ENT Exam ENT Exam: Mucous Membranes Moist, Normal External Ear Exam - Neck Exam Neck Exam: Full ROM. absent: Meningismus - Respiratory Exam Respiratory Exam: NORMAL BREATHING PATTERN. absent: Rales, Respiratory Distress - Cardiovascular Exam Cardiovascular Exam: REGULAR RHYTHM, +S1, +S2 - GI/Abdominal Exam GI & Abdominal Exam: Soft, Normal Bowel Sounds. absent: Tenderness - Extremities Exam Extremities Exam: Full ROM, Normal Capillary Refill Additional comments: left leg edema, - Back Exam Back Exam: Full ROM. absent: CVA tenderness (L), CVA tenderness (R) - Neurological Exam Neurological Exam: Alert, Awake, CN II-XII Intact, Oriented x3 Neuro motor strength exam: Left Upper Extremity: 5, Right Upper Extremity: 5, Left Lower Extremity: 5, Right Lower Extremity: 5 - Psychiatric Exam Psychiatric exam: Normal Affect, Normal Mood - Skin Skin Exam: Dry, Normal Color, Warm Assessment and Plan - Assessment and Plan (Free Text) Assessment: 82 yo male with a past medical history of Type 2 DM, essential hypertension, hypercholesterolemia, presented to ED with left lower extremity swelling and calf pain. He denies any trauma or recent injury to the leg. Denies any recent travel. Denies any history of blood clots in the past. In the ED, the patient was found to have a significant left lower extremity deep venous thrombosis extending up to the femoral vein and iliac veins . The patient does have good pedal pulses, normal capillary refill. Patient is saturating well, denies chest pain. He was started on therapeutic Lovenox. IR consulted and pt underwent Left Iliofemoral Thrombectomy and post procedure placed on therapeutic anticoagulation. 1 day post procedure noted more swelling to LLE and repeat doppler showed : left lower extremity deep venous thrombosis with occlusive thrombus from the groin to the calf IR informed and case discussed for potential repeat Thrombolysis with Dr. Jeong . Plan for direct catheter thrombolysis with possible stent placement and IVC filter on Sunday 1. Extensive Left lower extremity deep venous thrombosis s/p Thrombectomy Doppler US showed extensive DVt to LLE extending up to femoral vein on admission --unprovoked s/p thrombectomy and currently on heparin drip Repeat Doppler US 1 day post thrombectomy showed occlusive thrombus from groin to calf Called and discussed with Dr. Jeong. Plan for direct catheter thrombolysis possible stent placement and IVC filter placement on Sunday Continue Heparin drip for now, monitor PTT Hem/onc consult: DR Rivero 2. Uncontrolled Type 2 Diabetes mellitus Moderate carbohydrate consistent diet Regular insulin sliding scale, accucheks AC+HS Hold Metformin while in the hospital Increased Glucotrol to 10 mg XL daily 3. Essential hypertension controlled Losartan 100 mg po daily HCTZ 25 mg po daily 4. Hypercholesterolemia chronic Continue home statin 5. BPH on Flomax 6. Mild azotemia BUN 24 hydrate slowly 7. DVT prophylaxis on heparin drip
[2017-05-05] MEDS: Pantoprazole 40 mg EC Tab PO SCH (13:35)
--- NOTE | 2017-05-05 18:40 | CP.PCM.CON ---
History of Present Illness - History of Present Illness History of Present Illness: 82 year old male with a history of HTN, DM, HL, presented with left LE swelling and pain, found to have extensive LLE venous thrombus s/p thrombectomy and recurrence of thrombus awaiting catheter directed thrombolysis. The patient denies immobility or recent trauma to his LLE. He reports to his swelling improving but still continues with left calf pain. past medical history: HTN, DM, HL Past surgical history: None Family history: Denies hematologic and oncologic problems Social history: Denies tobacco, alcohol, and illicit drug use. Allergies: Review of systems: All remaining review of systems including HEENT , cardiovascular, respiratory, gastrointestinal, genitourinary, musculoskeletal , dermatologic, neurologic, and psychiatric are negative unless mentioned in the HPI. Past Patient History - Infectious Disease Hx of Infectious Diseases: None - Past Medical History & Family History Past Medical History?: Yes - Past Social History Smoking Status: Former Smoker - CARDIAC Hx Cardiac Disorders: Yes - PULMONARY Hx Respiratory Disorders: No - NEUROLOGICAL Hx Neurological Disorder: No - HEENT Hx HEENT Problems: Yes Hx Cataracts: Yes - RENAL Hx Chronic Kidney Disease: No - ENDOCRINE/METABOLIC Hx Diabetes Mellitus Type 2: Yes - HEMATOLOGICAL/ONCOLOGICAL Hx Blood Disorders: No - INTEGUMENTARY Hx Dermatological Problems: No - MUSCULOSKELETAL/RHEUMATOLOGICAL Hx Musculoskeletal Disorders: No Hx Falls: No - GASTROINTESTINAL Hx Gastrointestinal Disorders: No - GENITOURINARY/GYNECOLOGICAL Hx Genitourinary Disorders: Yes Hx Prostate Problems: Yes Other/Comment: BPH - PSYCHIATRIC Hx Psychophysiologic Disorder: No Hx Substance Use: No - SURGICAL HISTORY Hx Surgeries: Yes Hx Cataract Extraction: Yes - ANESTHESIA Hx Anesthesia: Yes Hx Anesthesia Reactions: No Hx Malignant Hyperthermia: No Has any member of the family had a problem w/ anesthesia?: No Meds Allergies/Adverse Reactions: Allergies Allergy/AdvReac Type Severity Reaction Status Date / Time No Known Allergies Allergy Verified 01/25/17 10:40 - Medications Medications: Current Medications Acetaminophen (Tylenol 325mg Tab) 650 mg PO Q6 PRN PRN Reason: Other Last Admin: 05/03/17 11:58 Dose: 650 mg Ergocalciferol (Drisdol 50,000 Intl Units Cap) 1 cap PO Q7D [facility] Last Admin: 04/30/17 08:23 Dose: Not Given Glipizide (Glucotrol Xl) 10 mg PO BRK [facility] Last Admin: 05/05/17 09:00 Dose: 10 mg Hydrochlorothiazide (Hydrodiuril) 25 mg PO DAILY [facility] Last Admin: 05/05/17 09:00 Dose: 25 mg Heparin Sodium/Dextrose (Heparin 25,000 Units/250ml In D5w) 25,000 units in 250 mls @ 11.5 mls/hr IV .[id number] [facility] PRN Reason: Protocol Stop: 05/07/17 09:00 Insulin Human Regular (Humulin R) 0 units SC ACCU-CHECK [facility] PRN Reason: Protocol Last Admin: 05/05/17 18:28 Dose: Not Given Lidocaine (Lidoderm) 1 ea TD DAILY [facility] Last Admin: 05/05/17 09:02 Dose: 1 ea Losartan Potassium (Cozaar) 100 mg PO DAILY [facility] Last Admin: 05/05/17 08:59 Dose: 100 mg Pantoprazole Sodium (Protonix Ec Tab) 40 mg PO DAILY [facility] Last Admin: 05/05/17 13:35 Dose: 40 mg Pravastatin Sodium (Pravachol) 40 mg PO DAILY [facility] Last Admin: 05/05/17 09:01 Dose: 40 mg Tamsulosin HCl (Flomax) 0.4 mg PO DAILY [facility] Last Admin: 05/05/17 09:00 Dose: 0.4 mg Tramadol HCl (Ultram) 50 mg PO Q4 PRN PRN Reason: Pain, moderate (4-7) Last Admin: 05/04/17 17:25 Dose: 50 mg Tramadol HCl (Ultram) 100 mg PO Q4 PRN PRN Reason: Pain, severe (8-10) Last Admin: 05/05/17 13:26 Dose: 100 mg Physical Exam - Head Exam Head Exam: ATRAUMATIC - Eye Exam Eye Exam: Normal appearance - ENT Exam ENT Exam: Mucous Membranes Dry - Respiratory Exam Respiratory Exam: NORMAL BREATHING PATTERN - Cardiovascular Exam Cardiovascular Exam: +S1, +S2 - GI/Abdominal Exam GI & Abdominal Exam: Normal Bowel Sounds - Extremities Exam Extremities exam: Positive for: pedal edema - Neurological Exam Neurological exam: Oriented x3 - Psychiatric Exam Psychiatric exam: Normal Affect, Normal Mood - Skin Skin Exam: Warm Results - Vital Signs Recent Vital Signs: Last Vital Signs Temp 98.2 F 05/05/17 16:08 Pulse 91 H 05/05/17 16:08 Resp 18 05/05/17 16:08 BP 120/62 05/05/17 16:08 Pulse Ox 95 05/05/17 16:08 - Labs Result Diagrams: 05/05/17 06:50 05/05/17 06:50 Labs: Laboratory Results - last 24 hr 05/04/17 05/05/17 05/05/17 21:17 05:53 06:50 WBC 5.3 RBC 4.13 L Hgb 11.0 L Hct 33.1 L MCV 80.2 MCH 26.6 L MCHC 33.2 RDW 13.0 Plt Count 278 APTT Sodium Potassium Chloride Carbon Dioxide Anion Gap BUN Creatinine Est GFR ( Amer) Est GFR (Non-Af Amer) POC Glucose (mg/dL) 171 H 101 Random Glucose Calcium 05/05/17 05/05/17 05/05/17 06:50 06:50 11:17 WBC RBC Hgb Hct MCV MCH MCHC RDW Plt Count APTT 52.0 H Sodium 140 Potassium 3.7 Chloride 102 Carbon Dioxide 28 Anion Gap 14 BUN 14 Creatinine 1.0 Est GFR ( Amer) > 60 Est GFR (Non-Af Amer) > 60 POC Glucose (mg/dL) 163 H Random Glucose 109 Calcium 9.1 05/05/17 15:46 WBC RBC Hgb Hct MCV MCH MCHC RDW Plt Count APTT Sodium Potassium Chloride Carbon Dioxide Anion Gap BUN Creatinine Est GFR ( Amer) Est GFR (Non-Af Amer) POC Glucose (mg/dL) 107 Random Glucose Calcium Assessment & Plan (1) DVT (deep venous thrombosis) Assessment and Plan: unprovoked - extensive LLE DVT above and below the knee s/p thrombectomy with recurrent clotting for catheter directecd thrombolysis on therapeutic heparin drip recommend CT C/A/P to rule out occult malignancy Status: Acute (2) Anemia Assessment and Plan: will check retic count, b12, folate, ferritin, FOBT to further characterize Thank you for this interesting consult. Status: Acute
[2017-05-05] MEDS: Heparin 25,000units in D5W 25,000 UNITS/250 ML BAG IV SCH (21:26)
[2017-05-06] MEDS ORDERED: Iohexol 240 (50 ml) PO ONE (09:00)
[2017-05-06] MEDS: Pravastatin Sodium 40 MG TAB PO SCH (09:09)
[2017-05-06] MEDS: GlipiZIDE 10 mg SR Tab PO SCH (09:09)
[2017-05-06] MEDS: Pantoprazole 40 mg EC Tab PO SCH (09:11)
[2017-05-06] MEDS: Lidocaine 5% Patch TD SCH (09:11)
[2017-05-06] MEDS: Insulin Regular 100 units/ml SC SCH ×4 (09:12→22:07)
[2017-05-06] MEDS ORDERED: Heparin 25,000units in D5W 25,000 UNITS/250 ML BAG IV SCH (11:00)
--- NOTE | 2017-05-06 11:05 | CP.PCM.PN ---
Subjective - Date & Time of Evaluation Date of Evaluation: 05/06/17 Time of Evaluation: 11:00 - Subjective Subjective: No fever still with left leg pain and swelling, slightly better denies CP no SOB no abd pain no urinary sxs constipation x 2 days asking for eye drops for his dry eyes and medication for his nasal allergy sxs Objective - Vital Signs/Intake and Output Vital Signs (last 24 hours): Temp Pulse Resp BP Pulse Ox 98.5 F 82 18 130/70 93 L 05/06/17 08:02 05/06/17 09:09 05/06/17 08:02 05/06/17 09:09 05/06/17 08:02 Intake and Output: 05/06/17 05/06/17 06:59 18:59 Intake Total 23 Output Total 250 Balance -227 - Medications Medications: Current Medications Acetaminophen (Tylenol 325mg Tab) 650 mg PO Q6 PRN PRN Reason: Other Last Admin: 05/03/17 11:58 Dose: 650 mg Ergocalciferol (Drisdol 50,000 Intl Units Cap) 1 cap PO Q7D [facility] Last Admin: 04/30/17 08:23 Dose: Not Given Glipizide (Glucotrol Xl) 10 mg PO BRK [facility] Last Admin: 05/06/17 09:09 Dose: 10 mg Hydrochlorothiazide (Hydrodiuril) 25 mg PO DAILY [facility] Last Admin: 05/06/17 09:37 Dose: 25 mg Heparin Sodium/Dextrose (Heparin 25,000 Units/250ml In D5w) 25,000 units in 250 mls @ 11.5 mls/hr IV .[id number] [facility] PRN Reason: Protocol Insulin Human Regular (Humulin R) 0 units SC ACCU-CHECK [facility] PRN Reason: Protocol Last Admin: 05/06/17 09:12 Dose: Not Given Lidocaine (Lidoderm) 1 ea TD DAILY [facility] Last Admin: 05/06/17 09:11 Dose: 1 ea Losartan Potassium (Cozaar) 100 mg PO DAILY [facility] Last Admin: 05/06/17 09:09 Dose: 100 mg Pantoprazole Sodium (Protonix Ec Tab) 40 mg PO DAILY [facility] Last Admin: 05/06/17 09:11 Dose: 40 mg Pravastatin Sodium (Pravachol) 40 mg PO DAILY [facility] Last Admin: 05/06/17 09:09 Dose: 40 mg Tamsulosin HCl (Flomax) 0.4 mg PO DAILY [facility] Last Admin: 05/06/17 09:09 Dose: 0.4 mg Tramadol HCl (Ultram) 50 mg PO Q4 PRN PRN Reason: Pain, moderate (4-7) Last Admin: 05/06/17 09:59 Dose: 50 mg Tramadol HCl (Ultram) 100 mg PO Q4 PRN PRN Reason: Pain, severe (8-10) Last Admin: 05/05/17 13:26 Dose: 100 mg - Labs Labs: 05/05/17 06:50 05/05/17 06:50 PT 14.0 Seconds (9.8-13.1) H 05/01/17 04:30 INR 1.3 (0.9-1.2) H 05/01/17 04:30 APTT 49.7 Seconds (25.6-37.1) H 05/06/17 07:00 - Constitutional Appears: No Acute Distress - Head Exam Head Exam: NORMAL INSPECTION, NORMOCEPHALIC - Eye Exam Eye Exam: EOMI, Normal appearance Pupil Exam: NORMAL ACCOMODATION - ENT Exam ENT Exam: Mucous Membranes Moist, Normal External Ear Exam - Neck Exam Neck Exam: Full ROM. absent: Meningismus - Respiratory Exam Respiratory Exam: NORMAL BREATHING PATTERN. absent: Rales, Respiratory Distress - Cardiovascular Exam Cardiovascular Exam: REGULAR RHYTHM, +S1, +S2 - GI/Abdominal Exam GI & Abdominal Exam: Soft, Normal Bowel Sounds. absent: Tenderness - Extremities Exam Extremities Exam: Full ROM, Normal Capillary Refill Additional comments: left leg edema, - Back Exam Back Exam: Full ROM. absent: CVA tenderness (L), CVA tenderness (R) - Neurological Exam Neurological Exam: Alert, Awake, CN II-XII Intact, Oriented x3 Neuro motor strength exam: Left Upper Extremity: 5, Right Upper Extremity: 5, Left Lower Extremity: 5, Right Lower Extremity: 5 - Psychiatric Exam Psychiatric exam: Normal Affect, Normal Mood - Skin Skin Exam: Dry, Normal Color, Warm Assessment and Plan - Assessment and Plan (Free Text) Assessment: 82 yo male with a past medical history of Type 2 DM, essential hypertension, hypercholesterolemia, presented to ED with left lower extremity swelling and calf pain. He denies any trauma or recent injury to the leg. Denies any recent travel. Denies any history of blood clots in the past. In the ED, the patient was found to have a significant left lower extremity deep venous thrombosis extending up to the femoral vein and iliac veins . The patient does have good pedal pulses, normal capillary refill. Patient is saturating well, denies chest pain. He was started on therapeutic Lovenox. IR consulted and pt underwent Left Iliofemoral Thrombectomy and post procedure placed on therapeutic anticoagulation. 1 day post Thrombectomy noted more swelling to LLE and repeat doppler showed : left lower extremity deep venous thrombosis with occlusive thrombus from the groin to the calf IR informed and case discussed for potential repeat Thrombolysis with Dr. Jeong . Plan for direct catheter thrombolysis with possible stent placement and IVC filter tomorrow 1. Extensive Left lower extremity deep venous thrombosis s/p Thrombectomy Doppler US showed extensive DVt to LLE extending up to femoral vein on admission --unprovoked s/p thrombectomy and currently on heparin drip Repeat Doppler US 1 day post thrombectomy showed occlusive thrombus from groin to calf Called and discussed with Dr. Jeong. Plan for direct catheter thrombolysis possible stent placement and IVC filter placement tomorrow Continue Heparin drip for now, monitor PTT Hem/onc consult: DR Rivero - recommended to work up for Occult Malignancy CT of chest , Abd/Pelvis 2. Uncontrolled Type 2 Diabetes mellitus Moderate carbohydrate consistent diet Regular insulin sliding scale, accuchek AC+HS Hold Metformin while in the hospital Increased Glucotrol to 10 mg XL daily- hold in am , pt will be NPO for procedure 3. Essential hypertension controlled Losartan 100 mg po daily HCTZ 25 mg po daily 4. Hypercholesterolemia chronic Continue home statin 5. BPH on Flomax 6. Mild azotemia gentle hydration 7. DVT prophylaxis on heparin drip
[2017-05-06] MEDS: Heparin 25,000units in D5W 25,000 UNITS/250 ML BAG IV SCH (12:25)
[2017-05-06] MEDS ORDERED: Iohexol 240 (50 ml) ONE (13:30)
[2017-05-06] MEDS ORDERED: Iohexol 300 100 ML IJ ONE (15:59)
[2017-05-06] MEDS: Artificial Tears Opht Soln OU SCH ×2 (16:46→22:06)
--- NOTE | 2017-05-06 17:48 | CT ---
EXAM: CT Chest With Intravenous Contrast CT Abdomen and Pelvis With Intravenous Contrast EXAM DATE/TIME: 05/06/2017 9:00 AM CLINICAL HISTORY: 82 years old, male; Signs and symptoms; Other: R/O occult malignancy; Additional info: Rule out occult malignancy TECHNIQUE: Axial computed tomography images of the chest, abdomen and pelvis with intravenous contrast. All CT scans at this facility use one or more dose reduction techniques, viz.: automated exposure control; ma/kV adjustment per patient size (including targeted exams where dose is matched to indication; i.e. head); or iterative reconstruction technique. Coronal and sagittal reformatted images were created and reviewed. CONTRAST: 95 mL of OMNIPAQUE 300 administered intravenously. COMPARISON: No relevant prior studies available. FINDINGS: CHEST: Lungs: Bronchial wall thickening. No consolidation. No mass. Pleural space: Unremarkable. No significant effusion. No pneumothorax. Heart: Unremarkable. No cardiomegaly. No significant pericardial effusion. Mediastinum: Small hiatal hernia. Trace contrast in the esophagus. Prominent distal esophageal wall. Thyroid: Absent left lobe thyroid gland. ABDOMEN: Liver: Unremarkable. No mass. Gallbladder and bile ducts: Unremarkable. No calcified stones. No ductal dilation. Pancreas: Unremarkable. No ductal dilation. No mass. Spleen: Unremarkable. No splenomegaly. Adrenals: Unremarkable. No mass. Kidneys and ureters: Unremarkable. No hydronephrosis. No solid mass. Stomach and bowel: Unremarkable. No obstruction. No mucosal thickening. Appendix: No findings to suggest acute appendicitis. PELVIS: Bladder: Unremarkable. No mass. Reproductive: Prostate gland measures 6 x 5 x 6 cm. CHEST, ABDOMEN and PELVIS: Intraperitoneal space: Unremarkable. No significant fluid collection. No free air. Bones/joints: Unremarkable. No acute fracture. No dislocation. Soft tissues: Unremarkable. Vasculature: Unremarkable. No aortic aneurysm. Lymph nodes: Mediastinal nodes of 1.5 cm. IMPRESSION: 1. Bronchial wall thickening, correlate for symptoms of bronchitis. 2. Mild esophageal dysmotility with trace enteric contrast in mid esophagus, probable mild distal esophagitis. 3. Absent left lobe thyroid gland. 4. Prostatic hypertrophy. 5. Remaining findings as above.
[2017-05-06 18:43] LABS: FOLATE 9.4 ng/mL
[2017-05-06 20:34] VITALS: RESP 18
--- NOTE | 2017-05-06 22:12 | CP.PCM.PN ---
Subjective - Date & Time of Evaluation Date of Evaluation: 05/06/17 Time of Evaluation: 17:50 - Subjective Subjective: Has left leg pain/swelling Objective - Vital Signs/Intake and Output Vital Signs (last 24 hours): Temp Pulse Resp BP Pulse Ox 98.2 F 103 H 18 145/75 95 05/06/17 20:00 05/06/17 20:00 05/06/17 20:00 05/06/17 20:00 05/06/17 20:00 Intake and Output: 05/06/17 05/07/17 18:59 06:59 Intake Total 23 Output Total 250 Balance -227 - Medications Medications: Current Medications Acetaminophen (Tylenol 325mg Tab) 650 mg PO Q6 PRN PRN Reason: Other Last Admin: 05/03/17 11:58 Dose: 650 mg Artificial Tears (Artificial Tears) 2 drop OU Q6 [facility] Last Admin: 05/06/17 22:06 Dose: 2 drop Ergocalciferol (Drisdol 50,000 Intl Units Cap) 1 cap PO Q7D [facility] Last Admin: 04/30/17 08:23 Dose: Not Given Fluticasone Propionate (Flonase) 1 spr LETICIA BID [facility] Last Admin: 05/06/17 16:46 Dose: 1 spr Glipizide (Glucotrol Xl) 10 mg PO BRK [facility] Last Admin: 05/06/17 09:09 Dose: 10 mg Hydrochlorothiazide (Hydrodiuril) 25 mg PO DAILY [facility] Last Admin: 05/06/17 09:37 Dose: 25 mg Heparin Sodium/Dextrose (Heparin 25,000 Units/250ml In D5w) 25,000 units in 250 mls @ 11.5 mls/hr IV .[id number] [facility] PRN Reason: Protocol Last Admin: 05/06/17 17:34 Dose: 11.5 mls/hr Insulin Human Regular (Humulin R) 0 units SC ACCU-CHECK [facility] PRN Reason: Protocol Last Admin: 05/06/17 22:07 Dose: Not Given Lidocaine (Lidoderm) 1 ea TD DAILY [facility] Last Admin: 05/06/17 09:11 Dose: 1 ea Losartan Potassium (Cozaar) 100 mg PO DAILY [facility] Last Admin: 05/06/17 09:09 Dose: 100 mg Pantoprazole Sodium (Protonix Ec Tab) 40 mg PO DAILY [facility] Last Admin: 05/06/17 09:11 Dose: 40 mg Pravastatin Sodium (Pravachol) 40 mg PO DAILY [facility] Last Admin: 05/06/17 09:09 Dose: 40 mg Tamsulosin HCl (Flomax) 0.4 mg PO DAILY [facility] Last Admin: 05/06/17 09:09 Dose: 0.4 mg Tramadol HCl (Ultram) 50 mg PO Q4 PRN PRN Reason: Pain, moderate (4-7) Last Admin: 05/06/17 09:59 Dose: 50 mg Tramadol HCl (Ultram) 100 mg PO Q4 PRN PRN Reason: Pain, severe (8-10) Last Admin: 05/05/17 13:26 Dose: 100 mg - Labs Labs: 05/05/17 06:50 05/05/17 06:50 PT 14.0 Seconds (9.8-13.1) H 05/01/17 04:30 INR 1.3 (0.9-1.2) H 05/01/17 04:30 APTT 49.7 Seconds (25.6-37.1) H 05/06/17 07:00 - Head Exam Head Exam: ATRAUMATIC - Eye Exam Eye Exam: Normal appearance - ENT Exam ENT Exam: Mucous Membranes Dry - Respiratory Exam Respiratory Exam: NORMAL BREATHING PATTERN - Cardiovascular Exam Cardiovascular Exam: +S1, +S2 - GI/Abdominal Exam GI & Abdominal Exam: Normal Bowel Sounds - Extremities Exam Extremities Exam: Pedal Edema Assessment and Plan (1) DVT (deep venous thrombosis) Assessment & Plan: unprovoked s/p thrombectomy with recurrence of DVT for IVC filter, stent, and catheter directed thrombolysis tomorrow therapeutic anticoagulation no overt evidence of malignancy by CT scan Status: Acute (2) Anemia Assessment & Plan: chronic disease Status: Acute (3) Coagulopathy Assessment & Plan: secondary to anticoagulation. Status: Acute
[2017-05-07] MEDS: Artificial Tears Opht Soln OU SCH ×3 (03:25→22:54)
[2017-05-07 05:00] VITALS: BP 112/73; PULSE 107; TEMP 97.9; O2SAT 95
[2017-05-07 05:42] LABS: HEMOGLOBIN 11.6 g/dL (12.0-18.0); MEAN CELL VOLUME 79.3 fl (80.0-94.0); MEAN CORPUSCULAR HEMOGLOBIN 26.8 pg (27.0-31.0); MEAN CORPUSCULAR HGB CONC 33.8 g/dL (33.0-37.0); RBC 4.34 Mil/uL (4.40-5.90); RED CELL DISTRIBUTION WIDTH 13.1 % (11.5-14.5); WHITE BLOOD COUNT 6.4 K/uL (4.8-10.8)
[2017-05-07 06:09] LABS: BLOOD UREA NITROGEN 18 mg/dl (9-20); CALCIUM 9.6 mg/dL (8.4-10.2); GFR AFRICAN-AMERICAN > 60; GFR NON-AFRICAN AMERICAN > 60
[2017-05-07] MEDS: Ergocalciferol 50,000 Intl Units Cap PO SCH (08:47)
[2017-05-07] MEDS: Lidocaine 5% Patch TD SCH (08:48)
--- NOTE | 2017-05-07 18:56 | CP.PCM.DIS ---
Provider - Provider Date of Admission: 04/29/17 22:00 Attending physician: Tani Kauffman DO Primary care physician: Dr Garcia Consults: Hematology: DR Rivero IR: Dr Jeong Time Spent in preparation of Discharge (in minutes): 20 Diagnosis - Discharge Diagnosis (1) DVT (deep venous thrombosis) Status: Acute (2) HTN (hypertension) Status: Chronic (3) DM type 2 (diabetes mellitus, type 2) Status: Chronic Hospital Course - Lab Results Lab Results: Micro Results 05/01/17 13:50 Naris MRSA Culture (Admit) - Final MRSA NOT DETECTED 04/30/17 16:21 Naris MRSA Culture (Admit) - Final MRSA NOT DETECTED Most Recent Lab Values WBC 6.4 K/uL (4.8-10.8) 05/07/17 04:45 RBC 4.34 Mil/uL (4.40-5.90) L 05/07/17 04:45 Hgb 11.6 g/dL (12.0-18.0) L 05/07/17 04:45 Hct 34.4 % (35.0-51.0) L 05/07/17 04:45 MCV 79.3 fl (80.0-94.0) L 05/07/17 04:45 MCH 26.8 pg (27.0-31.0) L 05/07/17 04:45 MCHC 33.8 g/dL (33.0-37.0) 05/07/17 04:45 RDW 13.1 % (11.5-14.5) 05/07/17 04:45 Plt Count 236 K/uL (130-400) 05/07/17 04:45 MPV 7.5 fl (7.2-11.7) 05/04/17 05:00 Neut % (Auto) 46.1 % (50.0-75.0) L 05/04/17 05:00 Lymph % (Auto) 35.5 % (20.0-40.0) 05/04/17 05:00 Mckean % (Auto) 13.5 % (0.0-10.0) H 05/04/17 05:00 Eos % (Auto) 4.4 % (0.0-4.0) H 05/04/17 05:00 Baso % (Auto) 0.5 % (0.0-2.0) 05/04/17 05:00 Neut # (Auto) 2.6 K/uL (1.8-7.0) 05/04/17 05:00 Lymph # (Auto) 2.0 K/uL (1.0-4.3) 05/04/17 05:00 Mckean # (Auto) 0.8 K/uL (0.0-0.8) 05/04/17 05:00 Eos # (Auto) 0.2 K/uL (0.0-0.7) 05/04/17 05:00 Baso # (Auto) 0.0 K/uL (0.0-0.2) 05/04/17 05:00 Retic Count 1.7 % (0.5-1.5) H 05/06/17 07:00 PT 14.0 Seconds (9.8-13.1) H 05/01/17 04:30 INR 1.3 (0.9-1.2) H 05/01/17 04:30 APTT 44.8 Seconds (25.6-37.1) H 05/07/17 04:45 Sodium 135 mmol/l (132-148) 05/07/17 04:45 Potassium 3.7 MMOL/L (3.6-5.0) 05/07/17 04:45 Chloride 94 mmol/L (98-107) L 05/07/17 04:45 Carbon Dioxide 26 mmol/L (22-30) 05/07/17 04:45 Anion Gap 19 (10-20) 05/07/17 04:45 BUN 18 mg/dl (9-20) 05/07/17 04:45 Creatinine 1.1 mg/dl (0.8-1.5) 05/07/17 04:45 Est GFR ( Amer) > 60 05/07/17 04:45 Est GFR (Non-Af Amer) > 60 05/07/17 04:45 POC Glucose (mg/dL) 142 mg/dL (65-110) H 05/07/17 05:14 Random Glucose 157 mg/dL (75-110) H 05/07/17 04:45 Hemoglobin A1c 11.4 % (4.2-6.5) H 04/30/17 04:30 Calcium 9.6 mg/dL (8.4-10.2) 05/07/17 04:45 Ferritin 345.0 ng/Ml (17.9-464) 05/06/17 07:00 Total Bilirubin 0.5 mg/dl (0.2-1.3) 04/29/17 21:00 AST 23 U/L (17-59) 04/29/17 21:00 ALT 30 U/L (21-72) 04/29/17 21:00 Alkaline Phosphatase 77 U/L (38-126) 04/29/17 21:00 Troponin I 0.0240 ng/mL (0.00-0.120) 05/04/17 05:00 NT-Pro-B Natriuret Pep 146 pg/ml (0-900) 05/04/17 05:00 Total Protein 7.9 G/DL (6.3-8.2) 04/29/17 21:00 Albumin 4.2 g/dL (3.5-5.0) 04/29/17 21:00 Globulin 3.7 gm/dL (2.2-3.9) 04/29/17 21:00 Albumin/Globulin Ratio 1.2 (1.0-2.1) 04/29/17 21:00 Vitamin B12 627 pg/mL (239-931) 05/06/17 07:00 Folate 9.4 ng/mL 05/06/17 07:00 - Hospital Course Hospital Course: 82 yo male with a past medical history of Type 2 DM, essential hypertension, hypercholesterolemia, presented to ED with left lower extremity swelling and calf pain. He denies any trauma or recent injury to the leg. Denies any recent travel. Denies any history of blood clots in the past. In the ED, the patient was found to have a significant left lower extremity deep venous thrombosis extending up to the femoral vein and iliac veins . The patient does have good pedal pulses, normal capillary refill. Patient is saturating well, denies chest pain. He was started on therapeutic Lovenox. IR consulted and pt underwent Left Iliofemoral Thrombectomy and post procedure placed on therapeutic anticoagulation ( Heparin drip). The day after Thrombectomy, pt was noted to have more swelling to LLE and repeat doppler showed : left lower extremity deep venous thrombosis with occlusive thrombus from the groin to the calf ( recurrence) IR informed and case discussed for potential repeat Thrombolysis with Dr. Jeong . Plan for direct catheter thrombolysis with possible stent placement and IVC filter today - will transfer pt to [facility] 1. Extensive Left lower extremity deep venous thrombosis s/p Thrombectomy Doppler US showed extensive DVt to LLE extending up to femoral vein on admission --unprovoked s/p thrombectomy and currently on heparin drip Repeat Doppler US 1 day post thrombectomy showed occlusive thrombus from groin to calf Called and discussed with Dr. Jeong. Plan for direct catheter thrombolysis possible stent placement and IVC filter placement Continue Heparin drip for now, monitor PTT Hem/onc consult: DR Rivero - recommended to work up for Occult Malignancy CT of chest , Abd/Pelvis 2. Uncontrolled Type 2 Diabetes mellitus Moderate carbohydrate consistent diet Regular insulin sliding scale, accuchek AC+HS Hold Metformin while in the hospital Increased Glucotrol to 10 mg XL daily- hold today as pt is NPO for procedure 3. Essential hypertension controlled Losartan 100 mg po daily HCTZ 25 mg po daily 4. Hypercholesterolemia chronic Continue home statin 5. BPH on Flomax 6. Mild azotemia gentle hydration 7. DVT prophylaxis on heparin drip Discharge Exam - Head Exam Head Exam: ATRAUMATIC, NORMAL INSPECTION, NORMOCEPHALIC - Eye Exam Eye Exam: EOMI Pupil Exam: NORMAL ACCOMODATION - ENT Exam ENT Exam: Mucous Membranes Moist, Normal External Ear Exam - Neck Exam Neck exam: Full Rom - Respiratory Exam Respiratory Exam: NORMAL BREATHING PATTERN. absent: Respiratory Distress - Cardiovascular Exam Cardiovascular Exam: REGULAR RHYTHM, +S1, +S2 - GI/Abdominal Exam GI & Abdominal Exam: Normal Bowel Sounds, Soft. absent: Tenderness - Extremities Exam Extremities exam: full ROM, normal capillary refill, pedal pulses present Additional comments: Left leg swelling , calf tenderness - Back Exam Back exam: FULL ROM. absent: CVA tenderness (L), CVA tenderness (R) - Neurological Exam Neurological exam: Alert, CN II-XII Intact, Oriented x3 - Psychiatric Exam Psychiatric exam: Normal Affect, Normal Mood - Skin Skin Exam: Dry, Normal Color, Warm Discharge Plan - Follow Up Plan Condition: STABLE Disposition: Trans to Other Acute Care Hosp Additional Instructions: transfer to [facility] for IVC filter placement, Catheter directed Thrombolysis and poss stent placement of Iliofemoral DVT Clinical Quality Measures - CQM - VTE Did patient receive overlap therapy during hosptialization?: Yes
[2017-05-07] MEDS: Insulin Regular 100 units/ml SC SCH ×2 (19:35→22:55)
[2017-05-07] MEDS: Pravastatin Sodium 40 MG TAB PO SCH (19:36)
[2017-05-07] MEDS: Pantoprazole 40 mg EC Tab PO SCH (19:36)
== END 2017-05-07 08:20 | disposition short-term general hospital (02) | DRG 271 ==
LOC: H.ER 19:19 → H.ERHOLD 22:00 → H.ICU/CCU 04-30 02:00 → H.TEL 05-04 21:27
PROVIDERS: ADMIT Internal Medicine; ATTEND Internal Medicine
PROC: 3E0234Z Introduction of Serum, Toxoid and Vaccine into Muscle, Percutaneous Approach (ICD-10-PCS; principal; 2017-04-30)
PROC: 06CD3ZZ Extirpation of Matter from Left Common Iliac Vein, Percutaneous Approach (ICD-10-PCS; 2017-05-01)
PROC: 06CN3ZZ Extirpation of Matter from Left Femoral Vein, Percutaneous Approach (ICD-10-PCS; 2017-05-01)
PROC: 067D3ZZ Dilation of Left Common Iliac Vein, Percutaneous Approach (ICD-10-PCS; 2017-05-01)
PROC: 067G3ZZ Dilation of Left External Iliac Vein, Percutaneous Approach (ICD-10-PCS; 2017-05-01)
PROC: B51CZZA Fluoroscopy of Left Lower Extremity Veins, Guidance (ICD-10-PCS; 2017-05-01)
PROC: B519ZZZ Fluoroscopy of Inferior Vena Cava (ICD-10-PCS; 2017-05-01)
DX: I82.412 Acute embolism and thrombosis of left femoral vein (principal); I87.1 Compression of vein; E11.65 Type 2 diabetes mellitus with hyperglycemia; D64.9 Anemia, unspecified; E86.0 Dehydration; I10 Essential (primary) hypertension; E78.00 Pure hypercholesterolemia, unspecified; E78.5 Hyperlipidemia, unspecified; Z87.891 Personal history of nicotine dependence; N40.0 Benign prostatic hyperplasia without lower urinary tract symptoms; R79.89 Other specified abnormal findings of blood chemistry; I82.522 Chronic embolism and thrombosis of left iliac vein; K59.00 Constipation, unspecified; H04.123 Dry eye syndrome of bilateral lacrimal glands; R79.1 Abnormal coagulation profile; Z23 Encounter for immunization; I82.4Z2 Acute embolism and thrombosis of unspecified deep veins of left distal lower extremity